=== PATIENT | female | born 1950 | race Caucasian/White ===

== ENCOUNTER 2020-04-30 09:04 | Outpatient (REF) | payer MEDICARE, SELFPAY ==
[2020-04-30 11:26] LABS: Hemoglobin 13.7 g/dl (12.0-16.0); Mean Corpuscular HGB Conc 32.6 g/dl (31.0-35.0); Mean Corpuscular Hemoglobin 27.9 pg (27.0-33.0); Mean Corpuscular Volume 85.5 fL (80-98); Mean Platelet Volume 10.7 fL (9.4-12.3); Platelet Count 165 X10*3/uL (160-400); Red Blood Count 4.91 X10*6/uL (4.20-5.50); Red Cell Distribution Width 14.6 % (11.0-16.0); White Blood Count 7.3 X10*3/uL (4.8-10.8)
[2020-04-30 11:59] LABS: Alanine Aminotransferase 21 U/L (0-31); Albumin Level 4.4 g/dL (3.5-5.0); Alkaline Phosphatase 67 U/L (39-117); Anion Gap 12 (12-20); Aspartate Amino Transferase 23 U/L (5-31); Bilirubin Total 0.8 mg/dL (0.0-1.0); Blood Urea Nitrogen 12 mg/dL (9-16); Calcium 9.2 mg/dL (8.4-10.2); Carbon Dioxide 28 mmol/L (22-29); Chloride 104 mmol/L (96-108); Cholesterol 123 mg/dL; Estimated Glomerular Filt Rate > 60; Glucose Fasting 113 mg/dL (60-99); HDL Cholesterol 40 mg/dL; LDL Cholesterol Calculated 62 mg/dl; Potassium 4.4 mmol/l (3.3-5.1); Sodium 140 mmol/L (135-145); Total Protein 7.1 g/dL (6.5-8.0); Triglycerides 106 mg/dL
[2020-04-30 12:07] LABS: Thyroid Stimulating Hormone 1.86 mIU/mL (0.32-4.0)
== END 2020-04-30 09:05 | disposition home or self-care (01) ==
LOC: HO.HMGCLDS 09:04
PROVIDERS: PCP Internal Medicine; Visit Provider Internal Medicine
DX: E78.5 Hyperlipidemia, unspecified (principal); E55.9 Vitamin D deficiency, unspecified; J44.9 Chronic obstructive pulmonary disease, unspecified; J98.8 Other specified respiratory disorders; K58.9 Irritable bowel syndrome, unspecified; R49.0 Dysphonia
CPT/HCPCS: 36415; 80053; 80061; 84443; 85027

== ENCOUNTER 2020-06-04 09:24 | Outpatient (REF) | payer MEDICARE, SELFPAY ==
--- NOTE | 2020-06-04 09:27 | CT_ITS ---
EXAMINATION: CT CHEST WITHOUT CONTRAST CLINICAL INFORMATION: COPD COMPARISON: None TECHNIQUE: Multidetector volumetric CT imaging of the chest was done. Axial MIP volume rendering provided. Sagittal and coronal reformatted images were obtained. This CT examination was performed using dose optimization techniques as appropriate, variously including the following: *Automated exposure control *Adjustment of mA and/or kV according to patient size (this includes techniques or standardized protocols for targeted exams where dose is matched to indication/reason for exam; i.e. 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 Band-like atelectasis visualized in the left lower lobe and lingula. There is focal consolidation, left lower lobe posterior basal segment, with large lobulated band-like linear density, left lower lobe extending to the major fissure. MEDIASTINUM: There is a large lobulated left hilar mass unable to distinguish from left pulmonary artery and pulmonary vein due to lack of IV contrast. There is abnormal infracarinal and anteromediastinal lymph nodes. The largest infracarinal lymph node measures 1.8. x 3.0 cm, axial image 25/3. The largest lymph node in the aortic window measures approximately 2.1 x 2.8 cm and is likely a direct extension of left hilar mass. Best visualized on axial image 19/3. PLEURA: Tiny left pleural effusion is noted posteriorly. No pleural thickening or calcification noted. AXILLA: No lymphadenopathy. UPPER ABDOMEN: Visualized liver, spleen, pancreas and bilateral adrenal glands are unremarkable. No radiopaque gallstones seen. OSSEOUS STRUCTURES: No lytic or sclerotic process. Small endplates Schmorl's node seen CT/CT chest wo con IMPRESSION: 1. Large left parahilar and suprahilar mass on noncontrast exam. There is associated abnormal mediastinal adenopathy. Differential diagnoses: enlarged left pulmonary artery branch secondary to AVM and/or varicosity. A CT chest contrast enhanced study would be helpful. 2. Interval small left pleural effusion.
== END 2020-06-04 09:25 | disposition home or self-care (01) ==
LOC: HO.CT 09:24
PROVIDERS: PCP Internal Medicine; Visit Provider Internal Medicine
DX: J44.9 Chronic obstructive pulmonary disease, unspecified (principal); F17.200 Nicotine dependence, unspecified, uncomplicated
CPT/HCPCS: 71250

== ENCOUNTER 2020-06-23 12:35 | Outpatient (REF) | payer MEDICARE, SELFPAY ==
[2020-06-23 15:19] LABS: Blood Urea Nitrogen 14 mg/dL (9-16); Estimated Glomerular Filt Rate > 60
== END 2020-06-23 12:36 | disposition home or self-care (01) ==
LOC: HO.HMGCLDS 12:35
PROVIDERS: PCP Internal Medicine; Visit Provider Internal Medicine
DX: R59.0 Localized enlarged lymph nodes (principal)
CPT/HCPCS: 82565; 84520

== ENCOUNTER 2020-06-24 09:40 | Outpatient (REF) | payer MEDICARE, SELFPAY ==
--- NOTE | 2020-06-24 09:43 | CT_ITS ---
EXAMINATION: CT CHEST WITH CONTRAST CLINICAL INFORMATION: Localized enlarged lymph nodes. COMPARISON: CT chest 06/04/2020 TECHNIQUE: Multidetector volumetric CT imaging of the chest was obtained after the administration of 50 mL of Omnipaque 350 intravenous contrast without immediate adverse reactions. Axial MIP volume rendering provided. Sagittal and coronal reformatted images were obtained. This CT examination was performed using dose optimization techniques as appropriate, variously including the following: *Automated exposure control *Adjustment of mA and/or kV according to patient size (this includes techniques or standardized protocols for targeted exams where dose is matched to indication/reason for exam; i.e. 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 LUNGS: The lungs are hyperinflated there is large nodular masses extending from the left hilum to the lower lobe likely resulting in bronchiolar obstruction and intrabronchiolar lesions. Moderate reticular interstitial nodular thickening in the left lower lobe posterior basal segment is suspected as well. There is a pleural-based 1.3 cm nodule left lower lobe image 48/5. This may represent a primary lung lesion. No additional nodules seen in the rest of the lung. MEDIASTINUM: There are large bulky lymphadenopathy seen in the subcarinal and left hilar region occluding the left mainstem bronchus and at the bifurcation into the bronchus intermedius and the lower lobe. Also visualized is abnormal lymph nodes extending in the aortic window, precarinal and pretracheal space. Central trachea is widely patent. The thyroid lobes are symmetrical. Heart size and great vessels are patent. There is mild narrowing of main left ovary artery and lower lobe pulmonary artery branch surrounded by pulmonary hilar lymph nodes. This finding is best visualized on the sagittal image 33/7. PLEURA: There is no pleural effusion. No pleural mass or thickening. AXILLA: No abnormal lymph nodes in the axilla. The chest wall and visualized breasts are symmetrical and normal. UPPER ABDOMEN: Visualized liver, spleen, pancreas and bilateral adrenal glands are unremarkable. OSSEOUS STRUCTURES: No lytic or sclerotic process seen. CT/CT chest w con IMPRESSION: Large bulky lymphadenopathy in the left subcarinal and left hilar and perihilar regions. Moderate size lymph nodes also visualized and aortic window precarinal and pretracheal space. Bulky lymphadenopathy surrounds the left bronchus mildly narrowing it. The bulky adenopathy also surrounding the left pulmonary artery and severely narrowing the left lower lobe pulmonary branch. There is a likely left lower lobe subpleural-based pulmonary nodule. Recommend referral to thoracic surgeon and oncologist. Recommend CT PET exam for further evaluation.
[2020-06-24] MEDS: iohexoL 350 MG/ML 100 ML INFUS..BTL 65 ML IV (10:37)
== END 2020-06-24 09:41 | disposition home or self-care (01) ==
LOC: HO.CT 09:40
PROVIDERS: PCP Internal Medicine; Visit Provider Internal Medicine
DX: R59.0 Localized enlarged lymph nodes (principal)
CPT/HCPCS: 71260; Q9967

== ENCOUNTER → 2020-06-27 09:11 | Outpatient (BNVA) | payer MEDICARE, SELFPAY | PROVIDERS: PCP Internal Medicine; Visit Provider Surgery | DX: R59.0 Localized enlarged lymph nodes (principal); R49.0 Dysphonia; R91.8 Other nonspecific abnormal finding of lung field | CPT/HCPCS: 99205 ==

== ENCOUNTER 2020-07-08 13:11 | Outpatient (REF) | payer MEDICARE, SELFPAY ==
--- NOTE | 2020-07-08 13:13 | MR_ITS ---
MR BRAIN WITHOUT AND WITH CONTRAST CLINICAL INFORMATION: Pulmonary nodule. Rule out brain metastases. COMPARISON: None TECHNIQUE: Multiplanar, multisequence MRI of the brain was obtained before and after the intravenous administration of 6 mL Gadavist. FINDINGS: There is no pathologic intracranial enhancement. There is mild chronic microangiopathy an there are chronic lacunar infarcts within the right deep puckett nuclei. There is no hydrocephalus, extra-axial surface collection, or herniation. The major flow voids at the skull base are preserved. There is a punctate acute lacunar infarct within the high left middle frontal gyrus on image 26 of series 4. There is no intracranial hemorrhage on the gradient recalled echo acquisition. The midline structures are normal. The cerebellar tonsils are normally positioned. The cerebellum and brainstem are normal. The craniocervical junction is normal. Osseous marrow signal intensity is homogenous. The visualized soft tissues are unremarkable. MR/MR head/brain wo/w con IMPRESSION: - There is a punctate acute lacunar infarct within the high left middle frontal gyrus on image 26 of series 4. - No enhancing lesions to suggest intracranial metastatic disease. - There is mild chronic microangiopathy an there are chronic lacunar infarcts within the right deep puckett nuclei.
== END 2020-07-08 13:12 | disposition home or self-care (01) ==
LOC: HO.MRI 13:11
PROVIDERS: Visit Provider Surgery
DX: R91.8 Other nonspecific abnormal finding of lung field (principal)
CPT/HCPCS: 70553; A9585

== ENCOUNTER 2020-07-15 08:59 | Outpatient (REF) | payer MEDICARE, SELFPAY ==
--- NOTE | 2020-07-15 09:03 | PE_ITS ---
EXAMINATION: Fluorine-18 FDG PET/CT Scan CLINICAL INDICATION: Initial treatment management. Pulmonary nodule. PROCEDURE: 68 minutes following the intravenous administration of 16.1 mCi of fluorine 18 FDG, images from the base of the skull to the mid thighs were obtained using a combined PET/CT scanner with CT scan based attenuation correction. No intravenous contrast was administered. No oral contrast was administered. Transverse, coronal, sagittal, and volume reconstruction projections were obtained. The patient's blood glucose as determined by a finger stick, was 67 mg/dl immediately prior to injection. Total CT exam dose-length product 321.84 mGy-cm * These CT images were obtained using dose optimization techniques as appropriate, variously including the following: Automated exposure control * Adjustment of mA and/or kV according to patient size (this includes techniques or standardized protocols for targeted exams where dose is matched to indication/reason for exam; i.e. extremities or head) * Use of iterative reconstruction technique COMPARISON: No previous PET/CT scan is available for comparison. CT scan of the chest dated 06/24/2020 is available for comparison. FINDINGS: (Slice numbers described in this report are numbered superiorly to inferiorly with slice #1 in the head) NECK AND VISUALIZED HEAD: No foci of abnormal FDG activity are noted. The distribution of FDG activity is physiological. There is no cervical lymphadenopathy. THORAX: There is intensely FDG avid confluent bulky lymphadenopathy that extends from superiorly in a right pretracheal focus at the level of the origin of the right subclavian artery to involve almost the entire right pretracheal region extending to the apoorva. Additional FDG avid precarinal lymph nodes are present and inferior to these extensive subcarinal, left hilar and left proximal peribronchial lymphadenopathy which is intensely FDG avid extends into the infrahilar region of the left lower lobe. Within this confluent mass the SUVmax is 15.3, slice 87/267, corresponding to a left lower lobe peribronchial focus. There is some posterolateral left lower lobe atelectasis, and within this is visualized the pleural-based 1.3 cm nodular opacity visualized on the 06/24/2020 CT scan. The latter is mildly FDG avid, SUVmax 2.6, slice 108/267. In the left upper lobe an FDG avid focus is present medially which abuts the posterior aspect of the left upper lobe bronchus, better delineated on the IV contrast enhanced 06/24/2020 CT scan and showing SUVmax 8.2, slice 75/267. No additional foci of abnormal FDG activity are present in the left upper lobe. No nodules or FDG avid foci are present in the right lung. There is no supraclavicular or axillary lymphadenopathy. There is no pleural or pericardial fluid, or pneumothorax. ABDOMEN AND PELVIS: No foci of abnormal FDG activity are present in the abdomen or pelvis. There is FDG activity of varying intensities in the gastrointestinal tract, most prominently in loops of small bowel in the right upper quadrant with no associated CT abnormalities. The liver, gallbladder, spleen comment kidneys, adrenal glands, and pancreas are unremarkable. There is no retroperitoneal, mesenteric, pelvic or inguinal lymphadenopathy. There is diverticulosis without evidence of diverticulitis. The hollow viscera are otherwise unremarkable. The pelvic organs are unremarkable. MUSCULOSKELETAL: No foci of abnormal FDG activity are present in the osseous structures. There is a mild thoracolumbar scoliosis with lumbar convexity to the left. There are degenerative changes in the spine most prominently at the L2-L3 level but there are no suspicious sclerotic or lytic lesions visualized. There is a dense 0.8 cm calcification in the posterior aspect of the left gluteus muscle posterior to the left ischium with no associated abnormal FDG activity. This may represent an injection granuloma. VASCULAR: Vascular calcifications including coronary are noted. PET/PET CT fusion skull to thigh IMPRESSION: 1. Intensely FDG avid bulky mediastinal, left hilar and left peribronchial lymphadenopathy is present as described above, most likely malignant in etiology. 2. A 1.3 nodular opacity abutting the posterolateral pleura of the left lower lobe is weakly FDG avid and is nonspecific. This may represent a small focus of rounded atelectasis, but the finding is nonspecific. 3. No additional abnormalities suspicious for other metastatic or malignant lesions are noted. 4. Vascular calcifications including coronary.
== END 2020-07-15 09:00 | disposition home or self-care (01) ==
LOC: HO.PET 08:59
PROVIDERS: Visit Provider Surgery
DX: Z13.89 Encounter for screening for other disorder (principal)

== ENCOUNTER → 2020-07-18 11:20 | Outpatient (BNVA) | payer MEDICARE, SELFPAY | PROVIDERS: PCP Internal Medicine; Visit Provider Surgery | DX: C34.82 Malignant neoplasm of overlapping sites of left bronchus and lung (principal); R59.0 Localized enlarged lymph nodes; F17.210 Nicotine dependence, cigarettes, uncomplicated | CPT/HCPCS: 99214 ==

== ENCOUNTER 2020-08-25 15:23 | Emergency (ER) | payer MEDICARE, SELFPAY ==
--- NOTE | ~2020-08-25 | CT_ITS ---
EXAMINATION: CT HEAD WITHOUT CONTRAST CLINICAL INFORMATION: Dizziness COMPARISON: Previous brain MRI June 2020 TECHNIQUE: Contiguous axial imaging was performed from the skull base to vertex without intravenous administration of contrast. This CT examination was performed using dose optimization techniques as appropriate, variously including the following: *Automated exposure control *Adjustment of mA and/or kV according to patient size (this includes techniques or standardized protocols for targeted exams where dose is matched to indication/reason for exam; i.e. extremities or head) *Use of iterative reconstruction technique DLP: 652 mGy-cm FINDINGS: There is no evidence of an extra-axial collection. There is no evidence of intra-axial or extra-axial hemorrhage. The ventricles and extra-axial CSF spaces are appropriate. Bishop white matter differentiation is normal. There may be an old small right basal ganglia lacunar infarct axial image 29 series 2. No mass, mass effect or acute infarct is seen. Review at bone windows is unremarkable. Visualized paranasal sinuses, mastoid air cells and middle ears are clear. CT/CT head/brain wo con IMPRESSION: No acute findings. Question old small right basal ganglia lacunar infarct.
[2020-08-25 15:34] VITALS: BP 135/77; BP 137/84; PULSE 86; RESP 16; TEMP 37.1; O2SAT 94; BMI 23.6
--- NOTE | 2020-08-25 15:44 | ECG_ITS ---
Test Reason : DIZZINESS Blood Pressure : / mmHG Vent. Rate : 094 BPM Atrial Rate : 094 BPM P-R Int : 120 ms QRS Dur : 078 ms QT Int : 350 ms P-R-T Axes : 015 006 044 degrees QTc Int : 437 ms Normal sinus rhythm Cannot rule out Inferior infarct , age undetermined Cannot rule out Anterior infarct , age undetermined Abnormal ECG No previous ECGs available Referred By: Lay Vivas Electronically Signed By:Francisco Villalobos
[2020-08-25 16:51] LABS: Basophils Absolute Auto 0.1 X10*3/uL (0.0-0.2); Basophils Percent Auto 0.8 % (0-2); Eosinophils Percent Auto 0.2 % (0-4); Hematocrit 32.9 % (37-47); Hemoglobin 11.3 g/dl (12.0-16.0); Imm Gran Abs Auto 0.11 X10*3/uL (0.00-0.03); Imm Gran Pct Auto 1.8 % (0.0-0.4); Lymphocytes Absolute Auto 0.4 X10*3/uL (1.2-4.9); Lymphocytes Percent Auto 5.8 % (20-40); MANUAL DIFF FLAG SCAN; Mean Corpuscular HGB Conc 34.3 g/dl (31.0-35.0); Mean Corpuscular Hemoglobin 27.8 pg (27.0-33.0); Mean Corpuscular Volume 80.8 fL (80-98); Mean Platelet Volume 8.9 fL (9.4-12.3); Monocytes Absolute Auto 0.1 X10*3/uL (0.1-1.2); Neutrophils Absolute Auto 5.7 X10*3/uL (2.0-8.3); Neutrophils Percent Auto 90.4 % (45-73); Platelet Count 216 X10*3/uL (160-400); Red Blood Count 4.07 X10*6/uL (4.20-5.50); Red Cell Distribution Width 15.4 % (11.0-16.0); SCAN SMEAR FLAG 1; White Blood Count 6.2 X10*3/uL (4.8-10.8)
--- NOTE | 2020-08-25 16:55 | ED_ITS ---
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 No nausea no vomiting no diarrhea no abdominal pain no focal deficit no fever no chills patient denies any chest pain no palpitation no shortness of breath no significant headache MD elicited complaint: dizziness and lightheadedness Pertinent past history: BPPV Onset (ago): hour(s) Timing: sudden onset Severity: mild Description: sense of movement Context: change in body position History of similar symptoms: Yes Exacerbating factors: movement/ambulation and change in body position Relieving factors: remaining still Associated symptoms: weakness Related Data Home Medications Medication Instructions Recorded Confirmed atorvastatin 80 mg tablet 80 mg PO DAILY 04/30/20 07/24/20 Previous Rx's Medication Instructions Recorded omeprazole 20 mg capsule,delayed 20 mg PO DAILY #90 cap 06/19/20 release lorazepam 1 mg tablet 1 mg PO BEDTIME PRN #30 tab 06/25/20 ergocalciferol (vitamin D2) 1,250 1,250 mcg PO QWEEK #12 cap 07/22/20 mcg (50,000 unit) capsule ondansetron HCl [Zofran] 8 mg PO Q8H PRN #50 tab 07/24/20 sertraline 100 mg tablet 100 mg PO DAILY #90 tab 08/19/20 Allergies Allergy/AdvReac Type Severity Reaction Status Date / Time codeine Allergy Unknown Itching Verified 07/24/20 09:08 erythromycin base Allergy Unknown Itching Verified 07/24/20 09:08 doxycycline Allergy Itching Verified 07/24/20 09:09 Review of Systems Review of Systems: Constitutional : No Weight loss, No Fever, No Chills ENT/Mouth : No sore throat, No Rhinorrhea Eyes: No Eye Pain, No Swelling Cardiovascular : No Chest Pain, no palpitations Respiratory : No Cough, No Sputum, no shortness of breath Gastrointestinal : no Nausea, No Vomiting, No Diarrhea, No abdominal Pain, no black stools Genitourinary : No Dysuria, No Urinary Frequency Musculoskeletal : No joint pain, No Myalgias, No Joint Swelling Skin : No Skin Lesions, No rash Neuro : No Weakness, No Numbness, ++ Dizziness, + Headache Psych : No Anxiety/Panic, No Depression Heme/Lymph: No Bruising, No Lymphadenopathy Endocrine : No Polyuria, No Polydipsia All other systems reviewed and are negative [facility] Past Medical History Medical History (Updated 08/25/20 @ 17:09 by Francis Peter MD) Congestion of upper respiratory tract COPD (chronic obstructive pulmonary disease) Dyspnea on exertion GERD (gastroesophageal reflux disease) Hiatal hernia Hilar adenopathy Hoarseness Hyperlipidemia IBS (irritable bowel syndrome) Mammogram declined Small cell lung cancer, overlapping sites of left lung Tobacco smoker, 1 pack of cigarettes or less per day Vitamin D deficiency Surgical History H/O colonoscopy History of dental surgery History of esophagogastroduodenoscopy (EGD) Hx of tonsillectomy No pertinent past surgical history Family History Family History Father Cancer of prostate Mother Alzheimer's disease DVT (deep venous thrombosis) Maternal Grandmother Diabetes mellitus Maternal Aunt Ovarian cancer Social History Social History Alcohol intake: former Smoking Status: Current every day smoker Tobacco Type: Cigarette Advance Directives: No Advance Directives Information Provided: Yes Physical Exam Vital Signs: Vital Signs: Last Vital Signs Temp 98.7 F 08/25/20 15:34 Pulse 86 08/25/20 15:34 Resp 16 08/25/20 15:34 BP 135/77 08/25/20 15:34 Pulse Ox 94 08/25/20 15:34 Body Mass Index 23.6 Appearance: Alert. Oriented X3. No acute distress. Eyes: Pupils equal, round and reactive to light. No nystagmus pallor+ ENT: Pharynx normal. Neck: Normal inspection. Neck supple. CVS: Normal heart rate and rhythm. Pulses normal. Respiratory: No respiratory distress. Breath sounds normal. Abdomen: Soft and nontender. Bowel sounds are present, no mass palpable, no CVA tenderness Skin: Skin warm and dry. Normal skin color. Normal skin turgor. Extremities: No lower extremity edema. Neuro: Oriented X 3. No motor deficit. No sensory deficit. No cerebellar signs no focal neurological deficit MDM - Dizziness Lab Data Attestation: I reviewed the patient's lab results. Result diagrams: 08/25/20 16:42 08/25/20 16:42 Labs: Lab Results 08/25/20 08/25/20 08/25/20 Range/Units 16:42 16:42 16:42 WBC 6.2 (4.8-10.8) X10*3/uL RBC 4.07 L (4.20-5.50) X10*6/uL Hgb 11.3 L (12.0-16.0) g/dl Hct 32.9 L (37-47) % MCV 80.8 (80-98) fL MCH 27.8 (27.0-33.0) pg MCHC 34.3 (31.0-35.0) g/dl RDW 15.4 (11.0-16.0) % Plt Count 216 D (160-400) X10*3/uL MPV 8.9 L (9.4-12.3) fL Immature Gran % (Auto) 1.8 H (0.0-0.4) % Neut % (Auto) 90.4 H (45-73) % Lymph % (Auto) 5.8 L (20-40) % [place] % (Auto) 1.0 L (2-11) % Eos % (Auto) 0.2 (0-4) % Baso % (Auto) 0.8 (0-2) % Lymph # (Auto) 0.4 L (1.2-4.9) X10*3/uL [place] # (Auto) 0.1 (0.1-1.2) X10*3/uL Eos # (Auto) 0.0 (0.0-0.4) X10*3/uL Baso # (Auto) 0.1 (0.0-0.2) X10*3/uL Abs Immat Gran (auto) 0.11 H (0.00-0.03) X10*3/uL Absolute Neuts (auto) 5.7 (2.0-8.3) X10*3/uL Absolute Nucleated RBC 0.000 (0.0-0.012) X10*3/uL Nucleated RBC % (auto) 0.0 (0.0-0.2) /100WBC PT 12.6 (10.8-13.0) SEC INR 1.1 (0.9-1.1) APTT 40.5 H (24.1-38.0) SEC Sodium 136 (135-145) mmol/L Potassium 4.1 (3.3-5.1) mmol/L Chloride 104 (96-108) mmol/L Carbon Dioxide 25 (22-29) mmol/L Anion Gap 11 L (12-20) BUN 16 D (9-16) mg/dL Creatinine 0.72 (0.5-1.4) mg/dL Estim Creat Clear Calc 60.9 Estimated GFR > 60 Random Glucose 123 H (60-115) mg/dL Calcium 8.4 (8.4-10.2) mg/dL Magnesium 1.9 (1.6-2.6) mg/dL Total Bilirubin 1.4 H (0.0-1.0) mg/dL Direct Bilirubin 0.5 (0.0-0.5) mg/dL AST 34 H (5-31) U/L ALT 52 H (0-31) U/L Alkaline Phosphatase 67 (39-117) U/L Troponin I High Sens (<3.5-17.0) ng/L Total Protein 6.7 (6.5-8.0) g/dL Albumin 4.0 (3.5-5.0) g/dL Urine Color Urine Appearance Urine pH (5.0-8.0) Ur Specific [place] (1.005-1.025) Urine Protein (NEG-TRACE) MG/DL Urine Glucose (UA) (NEG) MG/DL Urine Ketones (NEG) MG/DL Urine Blood (NEG) Urine Nitrite (NEG) Ur Leukocyte Esterase (NEG) COVID-19 (BRENDA) (Negative) COVID-19 Clin Com 08/25/20 08/25/20 08/25/20 Range/Units 16:42 16:42 16:55 WBC (4.8-10.8) X10*3/uL RBC (4.20-5.50) X10*6/uL Hgb (12.0-16.0) g/dl Hct (37-47) % MCV (80-98) fL MCH (27.0-33.0) pg MCHC (31.0-35.0) g/dl RDW (11.0-16.0) % Plt Count (160-400) X10*3/uL MPV (9.4-12.3) fL Immature Gran % (Auto) (0.0-0.4) % Neut % (Auto) (45-73) % Lymph % (Auto) (20-40) % [place] % (Auto) (2-11) % Eos % (Auto) (0-4) % Baso % (Auto) (0-2) % Lymph # (Auto) (1.2-4.9) X10*3/uL [place] # (Auto) (0.1-1.2) X10*3/uL Eos # (Auto) (0.0-0.4) X10*3/uL Baso # (Auto) (0.0-0.2) X10*3/uL Abs Immat Gran (auto) (0.00-0.03) X10*3/uL Absolute Neuts (auto) (2.0-8.3) X10*3/uL Absolute Nucleated RBC (0.0-0.012) X10*3/uL Nucleated RBC % (auto) (0.0-0.2) /100WBC PT (10.8-13.0) SEC INR (0.9-1.1) APTT (24.1-38.0) SEC Sodium (135-145) mmol/L Potassium (3.3-5.1) mmol/L Chloride (96-108) mmol/L Carbon Dioxide (22-29) mmol/L Anion Gap (12-20) BUN (9-16) mg/dL Creatinine (0.5-1.4) mg/dL Estim Creat Clear Calc Estimated GFR Random Glucose (60-115) mg/dL Calcium (8.4-10.2) mg/dL Magnesium (1.6-2.6) mg/dL Total Bilirubin (0.0-1.0) mg/dL Direct Bilirubin (0.0-0.5) mg/dL AST (5-31) U/L ALT (0-31) U/L Alkaline Phosphatase (39-117) U/L Troponin I High Sens 77.6 H (<3.5-17.0) ng/L Total Protein (6.5-8.0) g/dL Albumin (3.5-5.0) g/dL Urine Color YELLOW Urine Appearance HAZY Urine pH 6.0 (5.0-8.0) Ur Specific [place] 1.020 (1.005-1.025) Urine Protein NEG (NEG-TRACE) MG/DL Urine Glucose (UA) NEG (NEG) MG/DL Urine Ketones NEG (NEG) MG/DL Urine Blood NEG (NEG) Urine Nitrite NEG (NEG) Ur Leukocyte Esterase NEG (NEG) COVID-19 (BRENDA) Negative (Negative) COVID-19 Clin Com See Note ECG Data Attestation: I personally reviewed and interpreted this ECG as follows: Interpretation: Normal sinus rhythm heart rate 94 beats per minute Q-wave in inferior leads no acute ST wave changes normal axis normal intervals impression no acute ischemia Discharge Plan Discharge Prescriptions: No Action omeprazole 20 mg capsule,delayed release(DR/EC) 20 mg PO DAILY Qty: 90 RF: 3 ergocalciferol (vitamin D2) 1,250 mcg (50,000 unit) capsule 1,250 mcg PO QWEEK Qty: 12 RF: 3 sertraline 100 mg tablet 100 mg PO DAILY Qty: 90 RF: 3 ondansetron HCl [Zofran] 4 mg Tablet 8 mg PO Q8H PRN (Reason: Nausea And Vomiting) Qty: 50 RF: 4 atorvastatin 80 mg tablet 80 mg PO DAILY RF: 0 lorazepam 1 mg tablet 1 mg PO BEDTIME PRN (Reason: anxiety) Qty: 30 RF: 0
[2020-08-25 16:58] LABS: INTERNATIONAL NORM RATIO 1.1 (0.9-1.1); Prothrombin Time 12.6 SEC (10.8-13.0)
[2020-08-25 17:01] LABS: Partial Thromboplastin Time 40.5 SEC (24.1-38.0)
[2020-08-25 17:06] LABS: COVID-19 Test Negative (Negative)
[2020-08-25] MEDS: 0.9 % Sodium Chloride 1,000 ML 999 ML IVCONT (17:08)
[2020-08-25 17:11] LABS: Appearance Urine HAZY; Color Urine YELLOW; Glucose Urine UA NEG (NEG); Leukocyte Esterase Urine NEG (NEG); Nitrite Urine NEG (NEG); Urine Blood NEG (NEG); Urine Ketones NEG (NEG); Urine Protein NEG (NEG-TRACE)
[2020-08-25 17:16] LABS: Alanine Aminotransferase 52 U/L (0-31); Alkaline Phosphatase 67 U/L (39-117); Anion Gap 11 (12-20); Aspartate Amino Transferase 34 U/L (5-31); Bilirubin Direct 0.5 mg/dL (0.0-0.5); Bilirubin Total 1.4 mg/dL (0.0-1.0); Blood Urea Nitrogen 16 mg/dL (9-16); Calcium 8.4 mg/dL (8.4-10.2); Carbon Dioxide 25 mmol/L (22-29); Chloride 104 mmol/L (96-108); Creatinine Clr Calc Pharmacy 60.9; Estimated Glomerular Filt Rate > 60; Glucose Random 123 mg/dL (60-115); Magnesium 1.9 mg/dL (1.6-2.6); Potassium 4.1 mmol/L (3.3-5.1); Sodium 136 mmol/L (135-145); Total Protein 6.7 g/dL (6.5-8.0)
[2020-08-25 17:20] VITALS: BP 114/71; PULSE 82
[2020-08-25 17:22] VITALS: BP 119/76; PULSE 91
[2020-08-25 17:24] LABS: Troponin-I High Sensitivity 77.6 ng/L (<3.5-17.0)
[2020-08-25 17:26] LABS: SLIDE REVIEW VERIFIED
[2020-08-25 17:36] VITALS: BP 125/83; PULSE 120
[2020-08-25 19:33] VITALS: BP 122/72; PULSE 77; RESP 16
[2020-08-25 19:49] VITALS: O2SAT 100
== END 2020-08-25 20:22 | disposition home or self-care (01) ==
PROVIDERS: Emergency Medicine; Emergency Provider Internal Medicine
DX: R53.1 Weakness (principal); Z20.822 Contact with and (suspected) exposure to COVID-19; C34.92 Malignant neoplasm of unspecified part of left bronchus or lung; F17.210 Nicotine dependence, cigarettes, uncomplicated; Z92.21 Personal history of antineoplastic chemotherapy; Z79.899 Other long term (current) drug therapy
CPT/HCPCS: 36415; 70450; 80048; 80076; 81003; 83735; 84484; 85025; 85610; 85730; 87635; 93005; 96360; 99284

== ENCOUNTER → 2021-08-19 12:07 | Outpatient (BNVA) | payer MEDICARE, SELFPAY | PROVIDERS: PCP Internal Medicine; Referring Provider Internal Medicine; Visit Provider Physician Assistant | DX: K58.9 Irritable bowel syndrome, unspecified (principal) | CPT/HCPCS: 99202 ==

== ENCOUNTER → 2021-09-08 13:04 | Outpatient (BNVA) | payer MEDICARE, SELFPAY | PROVIDERS: PCP Internal Medicine; Referring Provider Internal Medicine; Visit Provider Physician Assistant | DX: Z13.89 Encounter for screening for other disorder (principal) | CPT/HCPCS: Q3014 ==

== ENCOUNTER 2021-09-17 09:27 | Outpatient (REF) | payer MEDICARE, SELFPAY ==
[2021-09-17 11:52] LABS: Appearance Urine CLEAR; Color Urine YELLOW; Glucose Urine UA NEG (NEG); Leukocyte Esterase Urine TRACE (NEG); Nitrite Urine NEG (NEG); UACC Culture Trigger YES; Urine Blood NEG (NEG); Urine Ketones NEG (NEG); Urine Protein NEG (NEG-TRACE)
[2021-09-17 12:18] LABS: Iron 72 mcg/dL (30-160); Percent Iron Saturation 23 % (15-50); Total Iron Binding Capacity 310 mcg/dL (228-428); Unsaturated Iron Binding 238 ug/dL
[2021-09-17 12:19] LABS: Bacteria Urine TRACE /LPF; RBC Urine 0 /HPF (0); Squamous Epithelial Cell Urine 1+ /LPF
[2021-09-17 12:36] LABS: Folate 4.2 ng/mL (> or = 4.0); Vitamin B12 416 pg/mL (200-900)
== END 2021-09-17 09:28 | disposition home or self-care (01) ==
LOC: HO.HMGCLDS 09:27
PROVIDERS: Physician Assistant; Visit Provider Internal Medicine
DX: D64.9 Anemia, unspecified (principal); R30.0 Dysuria; R19.7 Diarrhea, unspecified
CPT/HCPCS: 36415; 81001; 81003; 82607; 82746; 83540; 87086; 87088; 87186

== ENCOUNTER 2022-01-28 08:18 | Day surgery (SDC) | payer MEDICARE, SELFPAY ==
[2021-11-02 12:20] VITALS: BMI 23.3
--- NOTE | 2021-11-05 13:49 | P.CONAN_ITS ---
HPI - Anesthesia Eval Consult details Narrative: 71yo F for Upper Endoscopy and Colonoscopy Lung CA with chemo PMFSH Active Problems Active Problems: All Active Problems (Updated 11/02/21 @ 12:16 by Areli Tate, RN) Lung mass (Acute) Extensive stage primary small cell carcinoma of lung (Acute) Dysuria (Acute) Anemia (Acute) Cataract (Acute) Constipation (Acute) UTI (urinary tract infection) (Acute) Small cell lung cancer, overlapping sites of left lung (Acute) Hilar adenopathy (Acute) Dyspnea on exertion (Acute) Vitamin D deficiency (Acute) Mammogram declined (Acute) Tobacco smoker, 1 pack of cigarettes or less per day (Acute) IBS (irritable bowel syndrome) (Acute) COPD (chronic obstructive pulmonary disease) (Acute) Hyperlipidemia (Acute) Congestion of upper respiratory tract (Acute) Hoarseness (Acute) Past Medical History Medical History (Updated 11/02/21 @ 12:16 by Areli Tate RN) Anemia Cataract Congestion of upper respiratory tract Constipation COPD (chronic obstructive pulmonary disease) Dyspnea on exertion Dysuria GERD (gastroesophageal reflux disease) Hiatal hernia Hilar adenopathy Hoarseness Hx of cancer of lung Hyperlipidemia IBS (irritable bowel syndrome) Mammogram declined Small cell lung cancer, overlapping sites of left lung Tobacco smoker, 1 pack of cigarettes or less per day UTI (urinary tract infection) Vitamin D deficiency Family History Family History Father Cancer of prostate Mother Alzheimer's disease DVT (deep venous thrombosis) Maternal Grandmother Diabetes mellitus Maternal Aunt Ovarian cancer Surgical History Surgical History (Updated 11/04/21 @ 12:38 by Areli Tate RN) H/O colonoscopy History of dental surgery History of esophagogastroduodenoscopy (EGD) Hx of cataract surgery Hx of tonsillectomy Social History Social History Household Members: Spouse Housing: House Are you a primary menagerie caretaker to a significant other at home: Yes (father, also has second menagerie caretaker) Do you presently have visiting nurse or other home services: No Alcohol intake: former Patient Tobacco Use Status: Current someday Tobacco user Tobacco use type: Cigarette Cigarettes Per Day: 0.5 Years Smoked: 50+ Smoked in Last 30 Days: Yes Use of substances other than those prescribed or required for medical reasons: No Have you been hit, kicked, punched, or otherwise hurt by someone within the past year? If so, by whom?: No Are you DNR?: No Advance Directives: No (will bring copy dos) Advance Directives Information Provided: No Advance Directives on File: No Recently lost weight without trying: No Eating poorly because of decreased appetite: No Nutrition Risks: Dental problems and Difficulty chewing Current occupational status: retired Meds Allergies Allergy/AdvReac Type Severity Reaction Status Date / Time codeine Allergy Severe Itching, Verified 11/02/21 12:19 GI upset doxycycline Allergy Severe Itching, Verified 11/02/21 12:19 GI upset erythromycin base Allergy Severe Itching, Verified 11/02/21 12:19 GI upset Home Medications Medication Instructions Recorded Confirmed Last Taken Type atorvastatin 80 mg tablet 80 mg PO BEDTIME 11/02/21 11/02/21 Unknown History dorzolamide 2 % eye drops 1 drp OPHTHALMIC (EYE) BID 11/02/21 11/02/21 Unknown History latanoprost 0.005 % eye drops 1 drp OPHTHALMIC (EYE) DAILY 11/02/21 11/02/21 Unknown History Exam Exam Date and Time: November 05, 2021 1349 Height,Weight and Vital Signs: Height 5 ft 4 in Weight 61.689 kg Pertinent Lab Results Pertinent Lab Results: 10/02/21 Labs from outside facility CBC WNL except Plts 126 (L) BMP WNL Narrative Narrative: EKG 06/2020 NSR @ 87 Assessment and Plan Assessment Anesthesia Assessment: Chart Reviewed
--- NOTE | 2022-01-27 08:56 | P.CONAN_ITS ---
Documented by User: Dasha Green NP 01/27/22 08:58 HPI - Anesthesia Eval Consult details Narrative: 71yo F for Upper Endoscopy and Colonoscopy Lung CA ~ 2020 with chemo, rad, immunotherapy PMFSH Active Problems Active Problems: All Active Problems (Updated 11/02/21 @ 12:16 by Areli Tate, ENRIQUETA) Lung mass (Acute) Extensive stage primary small cell carcinoma of lung (Acute) Dysuria (Acute) Anemia (Acute) Cataract (Acute) Constipation (Acute) UTI (urinary tract infection) (Acute) Small cell lung cancer, overlapping sites of left lung (Acute) Hilar adenopathy (Acute) Dyspnea on exertion (Acute) Vitamin D deficiency (Acute) Mammogram declined (Acute) Tobacco smoker, 1 pack of cigarettes or less per day (Acute) IBS (irritable bowel syndrome) (Acute) COPD (chronic obstructive pulmonary disease) (Acute) Hyperlipidemia (Acute) Congestion of upper respiratory tract (Acute) Hoarseness (Acute) Past Medical History Medical History Anemia Cataract Congestion of upper respiratory tract Constipation COPD (chronic obstructive pulmonary disease) Dyspnea on exertion Dysuria GERD (gastroesophageal reflux disease) Hiatal hernia Hilar adenopathy Hoarseness Hx of cancer of lung Hyperlipidemia IBS (irritable bowel syndrome) Mammogram declined Small cell lung cancer, overlapping sites of left lung Tobacco smoker, 1 pack of cigarettes or less per day UTI (urinary tract infection) Vitamin D deficiency Family History Family History Father Cancer of prostate Mother Alzheimer's disease DVT (deep venous thrombosis) Maternal Grandmother Diabetes mellitus Maternal Aunt Ovarian cancer Surgical History Surgical History H/O colonoscopy History of dental surgery History of esophagogastroduodenoscopy (EGD) Hx of cataract surgery Hx of tonsillectomy Social History Social History Household Members: Spouse Housing: House Are you a primary medicare coordinator to a significant other at home: Yes (father, also has second medicare coordinator) Do you presently have visiting nurse or other home services: No Alcohol intake: former Patient Tobacco Use Status: Current someday Tobacco user Tobacco use type: Cigarette Cigarettes Per Day: 0.5 Years Smoked: 50+ Smoked in Last 30 Days: Yes Use of substances other than those prescribed or required for medical reasons: No Have you been hit, kicked, punched, or otherwise hurt by someone within the past year? If so, by whom?: No Are you DNR?: No Advance Directives: No (will bring copy dos) Advance Directives Information Provided: Yes Advance Directives on File: No Recently lost weight without trying: No Eating poorly because of decreased appetite: No Nutrition Risks: Dental problems and Difficulty chewing Current occupational status: retired Meds Allergies Allergy/AdvReac Type Severity Reaction Status Date / Time codeine Allergy Severe Itching, Verified 11/02/21 12:19 GI upset doxycycline Allergy Severe Itching, Verified 11/02/21 12:19 GI upset erythromycin base Allergy Severe Itching, Verified 11/02/21 12:19 GI upset Home Medications Medication Instructions Recorded Confirmed Last Taken Type atorvastatin 80 mg tablet 80 mg PO BEDTIME 11/02/21 11/02/21 Unknown History dorzolamide 2 % eye drops 1 drp ophthalmic (eye) BID 11/02/21 11/02/21 Unknown History latanoprost 0.005 % eye drops 1 drp ophthalmic (eye) DAILY 11/02/21 11/02/21 Unknown History Exam Exam Date and Time: January 27, 2022 0856 Height,Weight and Vital Signs: Height 5 ft 4 in Weight 61.689 kg Assessment and Plan Assessment Anesthesia Assessment: Chart Reviewed Documented by User: Abena Pittman MD 01/28/22 10:54 PMFSH Active Problems Active Problems: All Active Problems (Updated 11/02/21 @ 12:16 by Areli Tate RN) Lung mass (Acute) Extensive stage primary small cell carcinoma of lung (Acute) Dysuria (Acute) Anemia (Acute) Cataract (Acute) Constipation (Acute) UTI (urinary tract infection) (Acute) Small cell lung cancer, overlapping sites of left lung (Acute) Hilar adenopathy (Acute) Dyspnea on exertion (Acute) Vitamin D deficiency (Acute) Mammogram declined (Acute) Tobacco smoker, 1 pack of cigarettes or less per day (Acute) IBS (irritable bowel syndrome) (Acute) COPD (chronic obstructive pulmonary disease) (Acute)- not using inhaler Hyperlipidemia (Acute) Congestion of upper respiratory tract (Acute) Hoarseness (Acute) Past Medical History Medical History Anemia Cataract Congestion of upper respiratory tract Constipation COPD (chronic obstructive pulmonary disease) Dyspnea on exertion Dysuria GERD (gastroesophageal reflux disease) Hiatal hernia Hilar adenopathy Hoarseness Hx of cancer of lung Hyperlipidemia IBS (irritable bowel syndrome) Mammogram declined Small cell lung cancer, overlapping sites of left lung Tobacco smoker, 1 pack of cigarettes or less per day UTI (urinary tract infection) Vitamin D deficiency Family History Family History Father Cancer of prostate Mother Alzheimer's disease DVT (deep venous thrombosis) Maternal Grandmother Diabetes mellitus Maternal Aunt Ovarian cancer Family history of problems with anesthesia: No Surgical History Surgical History H/O colonoscopy History of dental surgery History of esophagogastroduodenoscopy (EGD) Hx of cataract surgery Hx of tonsillectomy History of Problems with Anesthesia: No Social History Social History Household Members: Spouse Housing: House Are you a primary medicare coordinator to a significant other at home: Yes (father, also has second medicare coordinator) Do you presently have visiting nurse or other home services: No Alcohol intake: former Patient Tobacco Use Status: Current someday Tobacco user Tobacco use type: Cigarette Cigarettes Per Day: 0.5 Years Smoked: 50+ Smoked in Last 30 Days: Yes Use of substances other than those prescribed or required for medical reasons: No Have you been hit, kicked, punched, or otherwise hurt by someone within the past year? If so, by whom?: No Are you DNR?: No Advance Directives: No (will bring copy dos) Advance Directives Information Provided: Yes Advance Directives on File: No Recently lost weight without trying: No Eating poorly because of decreased appetite: No Nutrition Risks: Dental problems and Difficulty chewing Current occupational status: retired Meds Allergies Allergy/AdvReac Type Severity Reaction Status Date / Time codeine Allergy Severe Itching, Verified 11/02/21 12:19 GI upset doxycycline Allergy Severe Itching, Verified 11/02/21 12:19 GI upset erythromycin base Allergy Severe Itching, Verified 11/02/21 12:19 GI upset Home Medications Medication Instructions Recorded Confirmed Last Taken Type atorvastatin 80 mg tablet 80 mg PO BEDTIME 11/02/21 11/02/21 Unknown History dorzolamide 2 % eye drops 1 drp ophthalmic (eye) BID 11/02/21 11/02/21 Unknown History latanoprost 0.005 % eye drops 1 drp ophthalmic (eye) DAILY 11/02/21 11/02/21 Unknown History Exam Height,Weight and Vital Signs: Height 5 ft 4 in Weight 61.689 kg Vital Signs Temp Pulse Resp BP Pulse Ox O2 Del Method 01/28/22 08:57 97.1 F 94 18 116/71 97 Room Air Airway Mallampati Class: I TM Dist: >3cm Neck ROM: Full Loose/Missing/Broken Teeth: Yes (Has dental implants -2 have fallen out at the back. Others intact) Heart: RRR Lungs: Bilateral wheezing Assessment and Plan Assessment Anesthesia Assessment: Anesthesia Plan Discussed Final Anesthetic Review Family History of Problems with Anesthesia: No History of Problems with Anesthesia: No NPO: Yes ASA Class: III Final Preanesthetic Review: No Changes in Pt Med Stat, Meds/Allgs Chart Reviewed, Consent Obtained/Reviewed and Anes Risks/Benef Reviewed Patient Risk: Intermediate Procedure Risk: Low Assessment/Block/Sedation in SS: Assess/Block/Sedation-SS Anesthetic Plan Anesthetic Plan: MAC: and Other (Albuterol treatment ordered) Disposition: Standard PACU
[2022-01-28 08:57] VITALS: BP 116/71; PULSE 94; RESP 18; TEMP 36.2; O2SAT 97
[2022-01-28] MEDS: Lactated Ringers 1,000 ML 100 ML IVCONT (08:59)
[2022-01-28] MEDS: Albuterol Sulfate (0.083%) 2.5 MG/3 ML VIAL.NEB INHALE (10:05)
[2022-01-28 10:06] VITALS: PULSE 84; RESP 18; O2SAT 96
--- NOTE | 2022-01-28 10:10 | MHC.SHP ---
Pre-Procedural Eval Section A Date of Service: 01/28/22 Section B Chief Complaint: anemia, abnormal bowle habits Relevant Family History (Specify if Yes): No Relevant Social History: Tobacco Use Present Medications: see Short Stay Collaborative assessment Medical History: Significant History (Anemia Cataract Congestion of upper respiratory tract Constipation COPD (chronic obstructive pulmonary disease) Dyspnea on exertion Dysuria GERD (gastroesophageal reflux disease) Hiatal hernia Hilar adenopathy Hoarseness Hx of cancer of lung Hyperlipidemia IBS (irritable bowel syndrome) Mammogram de) History of Previous Operations: Relevant previous surgery/procedure and date(s) (H/O colonoscopy History of dental surgery History of esophagogastroduodenoscopy (EGD) Hx of cataract surgery Hx of tonsillectomy) Allergies: Allergies Allergy/AdvReac Type Severity Reaction Status Date / Time codeine Allergy Severe Itching, Verified 11/02/21 12:19 GI upset doxycycline Allergy Severe Itching, Verified 11/02/21 12:19 GI upset erythromycin base Allergy Severe Itching, Verified 11/02/21 12:19 GI upset Review of Systems Sugical H&P ROS: Negative: Constitution, Cardiovascular, Respiratory, Neurological, Psychiatric, Hem-Onc, Allergic/Immunologic, Gastrointestinal, Genitourinary, Musculoskeletal, Integumentary, Endocrine and Eyes/Ears/Nose/Throat Exam Surgical H&P Exam: Normal: HEENT, Normal: Heart, Normal: Lungs, Normal: Extremities, Normal: Abdomen, Normal: Skin and Normal: Neurological Plan Diagnosis/Plan: Unchanged I have reviewed the history and physical and performed a pertinent physical examination on my patient. No changes have occurred unless specified.
--- NOTE | 2022-01-28 10:59 | W.PM.OPN ---
Operative Note Operative Note Date of Service: 01/28/22 Narrative: Operative Information Procedure Description: EGD, Colonoscopy Indication: abn bowel habits, anemia Anesthesia: MAC FLEXIBLE TRANSORAL UPPER GASTROINTESTINAL ENDOSCOPY AND COLONOSCOPY PROCEDURE NOTE UPPER ENDOSCOPY Consent: Indications for the procedure and potential complications of bleeding, perforation, reaction to medications and missed diagnosis were discussed with the patient and informed consent was obtained. Instrument: Olympus GIF H 190 J mid size upper endoscope Monitoring: Vital signs and clinical assessment, continuous EKG monitoring, Pulse oximetry, Carbon Dioxide monitoring and blood pressure monitoring were done throughout the procedure. Procedure: The patient was placed in the left lateral decubitis position and pre-procedure medications were administered and a bite block was placed. The endoscope was inserted into the mouth and advanced under direct vision to the third part of duodenum. A careful inspection was made as the upper endoscope was withdrawn including a retroflexed examination of the proximal stomach; Findings and interventions are described below. Findings: Larynx:normal Esophagus: GE junction at 34 cm, diaphragm hiatus at 36 cm, consistent with 2 cm sliding hiatal hernia, mild esophagitis and irregular Z line, bx taken, small esophageal inlet patch. Stomach: Mild gastritis. Biopsies were obtained. Grade 2 flap valve on retroflexed examination of the cardia. Duodenum: Normal bulb and descending duodenum, bx taken Intervention: Biopsies as noted above COLONOSCOPY Instrument: Olympus variable stiffness pediatric scope 190L Colonoscopy Monitoring: Vital signs and clinical assessment, continuous EKG monitoring, Pulse oximetry, Carbon Dioxide monitoring and blood pressure monitoring were done throughout the procedure. Colon withdrawal time was 10 minutes. Procedure: The patient was placed in the left lateral decubitis position and pre-procedure medications were administered. After a digital rectal examination of the ano-rectum, the video colonoscope was inserted into the rectum and advanced through the colon to the cecum/TI. The colonoscope was slowly withdrawn in a retrograde panoramic fashion and the colon mucosa was carefully examined including a retroflexed view of the rectum. Findings and interventions are described below. Procedure Difficulty: easy Findings: Terminal Ileum-normal, bx taken random colon bx taken Cecum:normal Ascending Colon: normal Transverse Colon -normal Descending Colon:normal Sigmoid Colon:moderate diverticulosis Rectum: Retroflexion with small internal hemorrhoids, grade I, 8 mm sessile polyp removed with cold snare Anorectum - normal Colon preparation: Burchard Bowel Preparation Scale Right colon; 2 Transverse colon: 2 Left colon; 2 (0 = Unprepared colon segment with mucosa not seen due to solid stool that cannot be cleared. 1 = Portion of mucosa of the colon segment seen, but other areas of the colon segment not well seen due to staining, residual stool and/or opaque liquid. 2 = Minor amount of residual staining, small fragments of stool and/or opaque liquid, but mucosa of colon segment seen well. 3 = Entire mucosa of colon segment seen well with no residual staining, small fragments of stool or opaque liquid) Impression and Post Procedure Diagnosis: Endoscopy Findings: hiatal hernia mild gastritis Colonoscopy Findings: polyp internal hemorrhoids diverticular disease Plan: Await Pathology results Repeat Colonoscopy in 5 years if adenomatous polyp, 10 years if hyperplastic or earlier if clinically indicated High fiber diet leaflet avoid straining at stool, epsom salts and sitz bath, anusol supps or cream reflux precautions Above findings were reviewed with the patient and relevant handouts were provided if indicated.
[2022-01-28 11:15] VITALS: BP 92/57; PULSE 93; RESP 13; TEMP 36.3; O2SAT 96
[2022-01-28 11:30] VITALS: BP 106/72; PULSE 84; RESP 16; O2SAT 95
[2022-01-28 11:45] VITALS: BP 106/62; PULSE 86; RESP 16; TEMP 36.4; O2SAT 95
== END 2022-01-28 12:54 | disposition home or self-care (01) ==
PROVIDERS: PCP Internal Medicine; Visit Provider Internal Medicine Gastroenterology
PROC: (CPT 45385; principal; 2022-01-28 10:20)
DX: D64.9 Anemia, unspecified (principal); R19.4 Change in bowel habit; K62.1 Rectal polyp; K57.30 Diverticulosis of large intestine without perforation or abscess without bleeding; K64.0 First degree hemorrhoids; K29.50 Unspecified chronic gastritis without bleeding; K29.80 Duodenitis without bleeding; K21.9 Gastro-esophageal reflux disease without esophagitis; K44.9 Diaphragmatic hernia without obstruction or gangrene; Q39.8 Other congenital malformations of esophagus; K58.9 Irritable bowel syndrome, unspecified; J44.9 Chronic obstructive pulmonary disease, unspecified; C34.82 Malignant neoplasm of overlapping sites of left bronchus and lung; E78.5 Hyperlipidemia, unspecified; E55.9 Vitamin D deficiency, unspecified; F17.210 Nicotine dependence, cigarettes, uncomplicated; Z92.21 Personal history of antineoplastic chemotherapy; Z79.899 Other long term (current) drug therapy; Z88.1 Allergy status to other antibiotic agents; Z88.8 Allergy status to other drugs, medicaments and biological substances
CPT/HCPCS: 45385; 45380; 43239; 88305; 88342; 94640; J2250

== ENCOUNTER → 2022-02-15 12:30 | Outpatient (BNVA) | payer MEDICARE, SELFPAY | PROVIDERS: PCP Internal Medicine; Visit Provider Physician Assistant | DX: K58.9 Irritable bowel syndrome, unspecified (principal); K21.9 Gastro-esophageal reflux disease without esophagitis; K57.30 Diverticulosis of large intestine without perforation or abscess without bleeding | CPT/HCPCS: 99212 ==

== ENCOUNTER 2022-04-29 09:18 | Outpatient (REF) | payer MEDICARE, SELFPAY ==
[2022-04-29 11:33] LABS: MANUAL DIFF FLAG NO
[2022-04-29 11:45] LABS: Basophils Percent Auto 0.4 % (0-2); Eosinophils Absolute Auto 0.2 X10*3/uL (0.0-0.4); Eosinophils Percent Auto 2.5 % (0-4); Hematocrit 40.2 % (37.0-47.0); Hemoglobin 12.9 g/dl (12.0-16.0); Imm Gran Abs Auto 0.02 X10*3/uL (0.00-0.03); Imm Gran Pct Auto 0.3 % (0.0-0.4); Lymphocytes Absolute Auto 0.6 X10*3/uL (1.2-4.9); Lymphocytes Percent Auto 8.8 % (20-40); Mean Corpuscular HGB Conc 32.1 g/dl (31.0-35.0); Mean Corpuscular Hemoglobin 27.4 pg (27.0-33.0); Mean Corpuscular Volume 85.4 fL (80.0-98.0); Mean Platelet Volume 11.2 fL (9.4-12.3); Monocytes Absolute Auto 0.5 X10*3/uL (0.1-1.2); Monocytes Percent Auto 7.8 % (2-11); Neutrophils Absolute Auto 5.5 x10*3/uL (2.0-8.3); Neutrophils Percent Auto 80.2 % (45-73); Platelet Count 144 X10*3/uL (160-400); Red Blood Count 4.71 X10*6/uL (4.20-5.50); Red Cell Distribution Width 17.2 % (11.0-16.0); White Blood Count 6.8 X10*3/uL (4.8-10.8)
[2022-04-29 11:54] LABS: Estimated Average Glucose 91 mg/dL; Hemoglobin A1c % 4.8 %
[2022-04-29 12:13] LABS: Alanine Aminotransferase 14 U/L (0-31); Albumin Level 4.3 g/dL (3.5-5.0); Alkaline Phosphatase 71 U/L (39-117); Anion Gap 15 (12-20); Aspartate Amino Transferase 20 U/L (5-31); Bilirubin Total 0.3 mg/dL (0.0-1.0); Blood Urea Nitrogen 20 mg/dL (9-16); Calcium 9.1 mg/dL (8.4-10.2); Carbon Dioxide 26 mmol/L (22-29); Chloride 107 mmol/L (96-108); Cholesterol 131 mg/dL; Estimated Glomerular Filt Rate > 60; Glucose Fasting 109 mg/dL (60-99); HDL Cholesterol 40 mg/dL; LDL Cholesterol Calculated 68 mg/dl; Potassium 4.6 mmol/L (3.3-5.1); Sodium 143 mmol/L (135-145); Total Protein 6.7 g/dL (6.5-8.0); Triglycerides 119 mg/dL
[2022-04-29 12:19] LABS: TSH reflex Free T4 2.17 uIU/mL (0.32-4.0)
== END 2022-04-29 09:19 | disposition home or self-care (01) ==
LOC: HO.HMGCLDS 09:18
PROVIDERS: PCP Internal Medicine; Visit Provider Internal Medicine
DX: Z00.00 Encounter for general adult medical examination without abnormal findings (principal); R73.9 Hyperglycemia, unspecified; R91.8 Other nonspecific abnormal finding of lung field; C34.82 Malignant neoplasm of overlapping sites of left bronchus and lung; E78.5 Hyperlipidemia, unspecified
CPT/HCPCS: 36415; 80053; 80061; 83036; 84443; 85025

== ENCOUNTER 2023-02-28 08:55 | Outpatient (AMB) | payer MEDICARE, SELFPAY ==
[2023-02-28 08:58] VITALS: BP 110/74; PULSE 109; O2SAT 98; BMI 24.4
--- NOTE | 2023-02-28 08:58 | A.OFFPC_ITS ---
Vital Signs 02/28/23 08:58 Height 5 ft 4 in Weight 142 lb BMI 24.4 BP 110/74 Blood Pressure Location Lt brachial Position Sitting Pulse 109 H Pulse Source Pulse Oximeter Pulse Oximetry (%) 98 Oxygen Delivery Method Room Air Intake Visit Reasons: Annual PE Intake Note: Pt is here today for PE. Allergies codeine Allergy (Severe, Verified 02/28/23 09:02) Itching, GI upset doxycycline Allergy (Severe, Verified 02/28/23 09:02) Itching, GI upset erythromycin base Allergy (Severe, Verified 02/28/23 09:02) Itching, GI upset Tobacco use date assessed: 02/28/23 Fall risk assessment: No Falls in past year Last assessed Fall Risk: 02/28/23 Dental Screening Dental Screen Date: 02/28/23 Did you have a dental visit in the last 12 months?: Yes Did you have a dental problem in the last 6 months where you did not have access to dental care?: No Was dental information given to patient?: Patient has dentist HPI Annual PE HPI Details Pt presents for PE. She is getting immunotherapy for recurrent SCLCA. patient complains of feeling generally tired but has good appetite and has been physically active. She has not been using inhalers for COPD because they were not helpful [facility] Medical History (Updated 02/28/23 @ 10:04 by Radha Chung MD) Anemia Cataract Congestion of upper respiratory tract Constipation COPD (chronic obstructive pulmonary disease) Dyspnea on exertion Dysuria GERD (gastroesophageal reflux disease) Hiatal hernia Hilar adenopathy Hoarseness Hx of cancer of lung Hyperlipidemia IBS (irritable bowel syndrome) Mammogram declined Small cell lung cancer, overlapping sites of left lung Tobacco smoker, 1 pack of cigarettes or less per day UTI (urinary tract infection) Vitamin D deficiency Surgical History H/O colonoscopy History of dental surgery History of esophagogastroduodenoscopy (EGD) Hx of cataract surgery Hx of tonsillectomy Family History Father Cancer of prostate Mother Alzheimer's disease DVT (deep venous thrombosis) Maternal Grandmother Diabetes mellitus Maternal Aunt Ovarian cancer Social History Household Members: Spouse Housing: House Are you a primary career guidance technician to a significant other at home: Yes (father, also has second career guidance technician) Do you presently have visiting nurse or other home services: No Alcohol intake: former Patient Tobacco Use Status: Current everyday Tobacco user Tobacco use type: Cigarette Cigarettes Per Day: 8 Years Smoked: 50+ e-Cigarette/Vaping Use: Never Used Current occupational status: retired Cognitive needs: No Hearing needs: No Vision needs: No Questionnaire PHQ-9 Over the last 2 weeks, how often have you been bothered by any of the following problems? 1. Little interest or pleasure in doing things: nearly every day 2. Feeling down, depressed, or hopeless: not at all 3. Trouble falling or staying asleep, or sleeping too much: nearly every day (cancer related-no depression ) 4. Feeling tired or having little energy: several days (cancer related-no depression ) 5. Poor appetite or overeating: several days (cancer related-no depression ) 6. Feeling bad about yourself - or that you are a failure or have let yourself or your family down: not at all 7. Trouble concentrating on things, such as reading the newspaper or watching television: nearly every day 8. Moving or speaking so slowly that other people could have noticed. Or the opposite - being so fidgety or restless that you have been moving around a lot more than usual: nearly every day 9. Thoughts that you would be better off or of hurting yourself in some way: not at all Total score: 14 Depression Screening Interpretation: Negative Source: Developed by Drs. Jermaine Rivera, Kaye Bob, Celio Malcolm and colleagues, with an educational sharon from [employer]. Thrive Questionnaire Date Thrive assessed: 02/28/23 I am a: Patient What is your living situation today?: I have a steady place to live Within the past 12 months, did the food you bought not last and you didn't have the money to get more?: Never true Within the past 12 months, did you worry whether your food would run out before you got money to buy more?: Never true Do you have trouble paying for medicines?: No Do you have trouble getting transportation to medical appointments?: No Do you have trouble paying your heating and electricity bill?: No Do you have trouble taking care of your child, family member or friend?: No Do you have trouble with day-to-day activities such as bathing, preparing meals, shopping, managing finances, etc.?: No Are you currently unemployed and looking for a job?: No Are you interested in more education?: No Please select the resources that you would like help with: None Currently or been in a relationship where the following occur: no concerns reported AUDIT C Alcohol Use Questionnaire (AUDIT-C) 1. How often do you have a drink containing alcohol?: Never 3. How often do you have six or more drinks on one occasion?: Never Total Score: 0 RICCO-7 AMB Questionnaire RICCO-7 Date RICCO - 7 assessed: 02/28/23 Source: Developed by Drs. Jermaine Rivera, Kaye Bob, Celio Malcolm and colleagues, with an educational sharon from [employer]. RICCO-7 Assessment Billing RICCO-7 Assessment Tool: pt declined-do not bill Review of Systems Const All systems reviewed & are unremarkable except as noted in HPI and below Reports no additional complaints Eyes Reports no additional complaints ENT Reports no additional complaints Card Reports no additional complaints Resp Reports no additional complaints GI Reports no additional complaints Reports no additional complaints Physical exam (Primary Care) Vital Signs: Last Vital Signs Pulse 109 H 02/28/23 08:58 BP 110/74 02/28/23 08:58 Pulse Ox 98 02/28/23 08:58 Oxygen Delivery Method Room Air 02/28/23 08:58 BMI result Body Mass Index 24.4 Tobacco/Smoking Status: Tobacco use Status Tobacco use date assessed 02/28/23 02/28/23 09:06 Patient Tobacco Use Status Current everyday Tobacco 02/28/23 09:06 Tobacco use type Cigarette 02/28/23 08:58 e-Cigarette/Vaping Use Never Used 02/28/23 09:06 PHQ-9: PHQ-9 Score PHQ-9: Total score 14 02/28/23 09:10 Depression Screening Interpretation: Negative Thrive Assessment: Date of Thrive Assessment Date Thrive assessed 02/28/23 02/28/23 09:10 Currently or been in a relationship where the following occur: no concerns reported Const General: no acute distress HENMT Head: Yes normal to inspection Ears: hearing grossly normal bilaterally General nose exam: Normal external nose present Face and sinus: Yes normal facial exam Mouth: Normal oral and palatal mucosa present Teeth and gingiva: dentition normal Throat: Yes posterior oropharynx normal Eyes General: appearance normal, both eyes and all related structures Neck Neck: Yes no lymphadenopathy and Yes supple Resp Effort & Inspection: normal respiratory effort Auscultation: diminished lung sounds (left more than right) Cardio Rhythm: regular rhythm Heart sounds: S1 normal heart sound present and S2 normal heart sound present GI Inspection: Yes normal to inspection Palpation (GI): Soft to palpation Percussion: Yes normal to percussion Auscultation: normal bowel sounds Assessment and Plan Assessment & Plan (1) Annual physical exam: Code(s): Z00.00 - Encounter for general adult medical examination without abnormal findings Plan: Well-balanced diet and regular physical activity discussed with the patient. (2) Small cell lung cancer, overlapping sites of left lung: Comment: [facility]iko- immunotherapy Dyspnea Code(s): C34.82 - Malignant neoplasm of overlapping sites of left bronchus and lung Plan: Follow-up with oncology (3) GERD (gastroesophageal reflux disease): Comment: Smoker, fairly well controlled with PPI Code(s): K21.9 - Gastro-esophageal reflux disease without esophagitis Plan: Continue PPI (4) Anxiety and depression: Code(s): F41.9 - Anxiety disorder, unspecified; F32.A - Depression, unspecified Plan: Continue Zoloft and follow-up with psychotherapy Coding Level of Care Code Est Pt Prev Care >65y(71293) Diagnoses Annual physical exam Z00.00 Small cell lung cancer, overlapping sites of left lung C34.82 GERD (gastroesophageal reflux disease) K21.9 Anxiety and depression F41.9; F32.A
== END 2023-02-28 10:04 | disposition home or self-care (01) ==
PROVIDERS: PCP Internal Medicine; Visit Provider Internal Medicine
DX: Z00.00 Encounter for general adult medical examination without abnormal findings (principal); C34.82 Malignant neoplasm of overlapping sites of left bronchus and lung; K21.9 Gastro-esophageal reflux disease without esophagitis; F41.9 Anxiety disorder, unspecified; F32.A Depression, unspecified
CPT/HCPCS: 99397

== ENCOUNTER → 2024-03-07 14:47 | Outpatient (RCR) | payer MEDICARE, OTHER, SELFPAY ==
[2020-07-24 08:58] VITALS: BP 115/65; PULSE 95; RESP 12; TEMP 36.7; O2SAT 95; BMI 24.0
--- NOTE | 2020-07-24 09:24 | P.CNHO_ITS ---
Subjective - Subjective Chief complaint: Consult for small cell carcinoma of the lung. Patient: new to practice Consult date: 07/24/20 Requesting Physician: Natasha. Primary Care Provider: Radha Chung MD Medical Summary: DIAGNOSIS: SMALL CELL LUNG CANCER. HPI - Consult Narrative Reason for consult: SMALL CELL LUNG CANCER. Narrative: Nicole Ivy is a pleasant 70 year old lady, long-time smoker, she tells me that a few months ago she noted that her acid reflux was acting up. She also noted her voice to be changing in became more hoarse. She then developed a sore throat. She had progressively increasing shortness of breath. She had to sit down after she mowed the lawn if she walked from car to the office she would get short of breath. Her chest was feeling heavy. She saw her primary who gave her nebulizer and other meds. When they did not work she had a chest x-ray did taken. This was followed by a CT scan of the chest which was done on June 24 and revealed: Large bulky lymphadenopathy in the left subcarinal and left hilar and perihilar regions. Moderate size lymph nodes also visualized and aortic window precarinal and pretracheal space. Bulky lymphadenopathy surrounds the left bronchus mildly narrowing it. The bulky adenopathy also surrounding the left pulmonary artery and severely narrowing the left lower lobe pulmonary branch. There is a likely left lower lobe subpleural-based pulmonary nodule. Recommend referral to thoracic surgeon and oncologist. Recommend CT PET exam for further evaluation. A left perihilar lung mass as well as significant mediastinal lymphadenopathy suspicious for at least a stage III lung cancer. We also discussed in detail the diagnosis, staging, and treatment of lung cancer which she seemed understand. A PET scan, from , revealed: 1. Intensely FDG avid bulky mediastinal, left hilar and left peribronchial lymphadenopathy is present as described above, most likely malignant in etiology. 2. A 1.3 nodular opacity abutting the posterolateral pleura of the left lower lobe is weakly FDG avid and is nonspecific. This may represent a small focus of rounded atelectasis, but the finding is nonspecific. 3. No additional abnormalities suspicious for other metastatic or malignant lesions are noted. 4. Vascular calcifications including coronary. She then underwent a brain MRI, to rule out metastatic disease. This showed no evidence of metastatic disease to the brain. She had a bronchoscopy and endobronchial ultrasound for diagnostic and staging purposes. . On bronchoscopy: There was a near totally obstructing lesion in the left mainstem bronchus right at the secondary apoorva. This was biopsied and small cell lung cancer. Endobronchial ultrasound done showed extensive mediastinal lymphadenopathy and stations L4, R4, and level 7 were all biopsied and positive for small cell carcinoma. She tolerated the procedure well and has been doing well since. She tells me that lately she has felt more tired than usual. Denies any fever nor chills. Her appetite has declined. She has lost about 8 lb over the past 6 months. She does feel dizzy at times She has midsternal chest pressure. She has shortness of breath on exertion. She does have a dry cough. Denies hemoptysis. She has had symptoms of reflux. She has been burping a lot. Bowels are mainly regular however she does get episodes of diarrhea off and on. She does get joint pains related to arthritis. SOCIAL HISTORY: She has a , that she lives with. She has no children. She has been smoking a pack a day since the age of 16. She is now trying to quit. She is down to 3 or less cigarettes a day. She drinks socially. Review of Systems - Constitutional Reports system reviewed and no additional complaints, except as documented - Eyes Reports system reviewed and no additional complaints, except as documented - ENT Reports system reviewed and no additional complaints, except as documented - Cardiovascular Reports system reviewed and no additional complaints, except as documented, Reports chest pain at rest, Reports shortness of breath - Respiratory Reports no additional respiratory complaints, Reports cough, Reports dyspnea on exertion - Gastrointestinal Reports system reviewed and no additional complaints, except as documented, Reports belching, Reports bloating, Reports diarrhea, Reports nausea - Genitourinary Reports no additional female genitourinary complaints - Musculoskeletal Reports system reviewed and no additional complaints, except as documented, Reports joint pain - Integumentary/Breasts Skin/Breast: Reports no additional skin complaints - Neurologic Reports system reviewed and no additional complaints, except as documented - Psychiatric Reports system reviewed and no additional complaints, except as documented - Endocrine Reports no additional endocrine complaints - Hematologic/Lymphatic Reports system reviewed and no additional complaints, except as documented - Allergic/Immunologic Reports system reviewed and no additional complaints, except as documented [facility] Medical History: Medical History (Last Reviewed 07/18/20 @ 14:33 by Jae Kaur MD) Congestion of upper respiratory tract COPD (chronic obstructive pulmonary disease) Dyspnea on exertion GERD (gastroesophageal reflux disease) Hiatal hernia Hilar adenopathy Hoarseness Hyperlipidemia IBS (irritable bowel syndrome) Mammogram declined Tobacco smoker, 1 pack of cigarettes or less per day Vitamin D deficiency Functional capacity: independent ambulation Patient : No Family History: Family History (Last Updated 07/24/20 @ 09:06 by Shasta Khan) Father Cancer of prostate Mother Alzheimer's disease DVT (deep venous thrombosis) Maternal Grandmother Diabetes mellitus Maternal Aunt Ovarian cancer Surgical History: Surgical History (Last Updated 07/24/20 @ 09:04 by Shasta Khan) H/O colonoscopy History of dental surgery History of esophagogastroduodenoscopy (EGD) Hx of tonsillectomy No pertinent past surgical history Smoking status: Current every day smoker Home Medications and Allergies Home Medications Medication Instructions Recorded Confirmed Type atorvastatin 80 mg tablet 80 mg PO DAILY 04/30/20 07/24/20 History sertraline 100 mg tablet 100 mg PO DAILY 04/30/20 07/24/20 History Allergies Allergy/AdvReac Type Severity Reaction Status Date / Time codeine Allergy Unknown Itching Verified 07/24/20 09:08 erythromycin base Allergy Unknown Itching Verified 07/24/20 09:08 doxycycline Allergy Itching Verified 07/24/20 09:09 Physical Exam Vital signs: Vital Signs Temp 98.1 F 07/24/20 08:58 Pulse 95 07/24/20 08:58 Resp 12 07/24/20 08:58 BP 115/65 07/24/20 08:58 Pulse Ox 95 07/24/20 08:58 Intake & Output 07/23/20 07/24/20 07/24/20 18:59 06:59 18:59 Other: Weight 64.4 kg Weight 64.4 kg - Constitutional Present: moderate distress - Routine Neck Exam Present: supple - Routine Respiratory Exam Present: CTAB - Routine Cardiovascular Exam Cardiovascular: Present: RRR, S1, S2 - Routine Abdominal Exam Present: soft, nontender - Routine Rectal Exam Patient deferred: digital exam - Routine Skin Exam Present: intact - Routine Neurological Exam Present: alert, oriented X3 - Detailed Neurological Exam: Coma Scale Eye Opening: Spontaneous (4) Verbal Response: Oriented (5) Motor Response: Obeys commands (6) Edon Coma Scale Total: 15 - Routine Psychiatric Exam Present: depressed, normal affect. Absent: agitated Hem/Onc Consult Result - Labs CBC & Chem 7: 07/29/20 15:59 07/29/20 15:59 Assessment and Plan (1) Extensive stage primary small cell carcinoma of lung Status: Acute This is a pleasant 70-year-old lady with history of smoking and COPD. She presented with progressive cough, chest pressure, hoarseness and shortness of breath over the past 6 months. She has been diagnosed with extensive stage small cell carcinoma of the lung. CT scan of the chest which was done on June 24 and revealed: Large bulky lymphadenopathy in the left subcarinal and left hilar and perihilar regions. Moderate size lymph nodes also visualized and aortic window precarinal and pretracheal space. Bulky lymphadenopathy surrounds the left bronchus mildly narrowing it. The bulky adenopathy also surrounding the left pulmonary artery and severely narrowing the left lower lobe pulmonary branch. There is a likely left lower lobe subpleural-based pulmonary nodule. Recommend referral to thoracic surgeon and oncologist. Recommend CT PET exam for further evaluation. A PET scan, from , revealed: 1. Intensely FDG avid bulky mediastinal, left hilar and left peribronchial lymphadenopathy is present as described above, most likely malignant in etiology. 2. A 1.3 nodular opacity abutting the posterolateral pleura of the left lower lobe is weakly FDG avid and is nonspecific. This may represent a small focus of rounded atelectasis, but the finding is nonspecific. 3. No additional abnormalities suspicious for other metastatic or malignant lesions are noted. 4. Vascular calcifications including coronary. MRI of the brain: showed no evidence of metastatic disease to the brain. She appears to have significant bronchial obstruction. I went over the course and prognosis of small-cell carcinoma with her and her significant other. Mentioned that without treatment, her median survival would be 8 weeks. With treatment it could be 18-24 months, depending upon her response and tolerability. I have recommended combined modality therapy with radiation along with systemic chemotherapy with carbo etoposide and Atezolizumab. She had a tele visit with Dr. Carter, from [facility], yesterday. Details of the regimen including potential side effects of nausea vomiting diarrhea, renal toxicity, pancytopenia, need for antibiotic blood transfusions as well as growth factors was all addressed with her. She understands and is willing to proceed. PLAN: I will start her on systemic chemotherapy next week. Will give her 1 cycle and hopefully she can start radiation with her 2nd. She will return on Tuesday for chemo teaching and get started on TuesdayJuly 30. All her and her partner's questions were answered to their satisfaction. Thanks, CC: Dr. Chung.
--- NOTE | 2020-07-24 09:42 | MHC.HEMONCMA ---
Patient came in today for a consult on a lung cancer diagnosis, states she is doing well, she only has sob when she is moving/walking. She had a consult with [facility], the will call her next week for her start there. She will be treated with chemo, her chemo teach will be Tuesday and her regiment is going to be tue, and tuesday's. She is ok with the plan.
[2020-07-24 10:06] LABS: MANUAL DIFF FLAG NO
[2020-07-24 10:14] LABS: Basophils Percent Auto 0.4 % (0-2); Eosinophils Absolute Auto 0.1 X10*3/uL (0.0-0.4); Eosinophils Percent Auto 1.5 % (0-4); Hemoglobin 13.1 g/dl (12.0-16.0); Imm Gran Abs Auto 0.02 X10*3/uL (0.00-0.03); Imm Gran Pct Auto 0.3 % (0.0-0.4); Lymphocytes Absolute Auto 0.9 X10*3/uL (1.2-4.9); Lymphocytes Percent Auto 13.8 % (20-40); Mean Corpuscular HGB Conc 32.8 g/dl (31.0-35.0); Mean Corpuscular Hemoglobin 27.2 pg (27.0-33.0); Mean Platelet Volume 9.9 fL (9.4-12.3); Monocytes Absolute Auto 0.6 X10*3/uL (0.1-1.2); Monocytes Percent Auto 8.1 % (2-11); Neutrophils Absolute Auto 5.1 X10*3/uL (2.0-8.3); Neutrophils Percent Auto 75.9 % (45-73); Platelet Count 182 X10*3/uL (160-400); Red Blood Count 4.82 X10*6/uL (4.20-5.50); Red Cell Distribution Width 14.5 % (11.0-16.0); White Blood Count 6.8 X10*3/uL (4.8-10.8)
[2020-07-24 10:37] LABS: Alanine Aminotransferase 25 U/L (0-31); Albumin Level 4.1 g/dL (3.5-5.0); Alkaline Phosphatase 72 U/L (39-117); Anion Gap 12 (12-20); Aspartate Amino Transferase 24 U/L (5-31); Bilirubin Total 0.8 mg/dL (0.0-1.0); Blood Urea Nitrogen 16 mg/dL (9-16); Calcium 8.8 mg/dL (8.4-10.2); Carbon Dioxide 26 mmol/L (22-29); Chloride 105 mmol/L (96-108); Creatinine Clr Calc Pharmacy 55.5; Estimated Glomerular Filt Rate > 60; Glucose Random 109 mg/dL (60-115); Lactate Dehydrogenase 255 U/L (122-220); Potassium 4.3 mmol/l (3.3-5.1); Sodium 139 mmol/L (135-145); Total Protein 6.8 g/dL (6.5-8.0)
--- NOTE | 2020-07-24 16:33 | MHC.HEMONC ---
Onc consult today with Dr. Owen. Plan to start Atezolizumab/Carboplatin/Etoposide. Chemotherapy teaching scheduled for 07/29/20 with plan to start chemotherapy on 07/30/20. [place] to obtain prior authorization. No need for port placement at this time per Dr. Owen. Pharmacy notified.
--- NOTE | 2020-07-28 15:16 | MHC.HEMONC ---
NO PA REQUIRED FOR CARBOPLATIN(REF#: [id number]) & ETOPOSIDE( REF#-[id number]) - [facility] -
--- NOTE | 2020-07-28 15:22 | MHC.HEMONC ---
ATEZOLIZUMAB (TECENTRIQ) PA REQUESTED. WAITING ON RESPONSE
--- NOTE | 2020-07-29 09:18 | MHC.HEMONC ---
SIM FOR ATEZOLIZUMAB ([facility]) APPROVED REFERENCE# [id number]
[2020-07-29 14:19] VITALS: BP 135/79; PULSE 92; RESP 18; TEMP 36.7; O2SAT 95; BMI 24.0
[2020-07-29 16:13] LABS: MANUAL DIFF FLAG NO
[2020-07-29 16:20] LABS: Basophils Percent Auto 0.4 % (0-2); Eosinophils Absolute Auto 0.1 X10*3/uL (0.0-0.4); Eosinophils Percent Auto 1.7 % (0-4); Hematocrit 42.1 % (37-47); Imm Gran Abs Auto 0.02 X10*3/uL (0.00-0.03); Imm Gran Pct Auto 0.2 % (0.0-0.4); Lymphocytes Absolute Auto 1.2 X10*3/uL (1.2-4.9); Lymphocytes Percent Auto 14.6 % (20-40); Mean Corpuscular HGB Conc 33.3 g/dl (31.0-35.0); Mean Corpuscular Hemoglobin 27.3 pg (27.0-33.0); Mean Corpuscular Volume 82.1 fL (80-98); Monocytes Absolute Auto 0.7 X10*3/uL (0.1-1.2); Monocytes Percent Auto 8.4 % (2-11); Neutrophils Absolute Auto 6.3 X10*3/uL (2.0-8.3); Neutrophils Percent Auto 74.7 % (45-73); Platelet Count 197 X10*3/uL (160-400); Red Blood Count 5.13 X10*6/uL (4.20-5.50); Red Cell Distribution Width 14.6 % (11.0-16.0); White Blood Count 8.4 X10*3/uL (4.8-10.8)
[2020-07-29 16:51] LABS: Alanine Aminotransferase 32 U/L (0-31); Albumin Level 4.4 g/dL (3.5-5.0); Alkaline Phosphatase 77 U/L (39-117); Anion Gap 14 (12-20); Aspartate Amino Transferase 30 U/L (5-31); Blood Urea Nitrogen 10 mg/dL (9-16); Calcium 9.3 mg/dL (8.4-10.2); Carbon Dioxide 26 mmol/L (22-29); Chloride 102 mmol/L (96-108); Creatinine Clr Calc Pharmacy 53.4; Estimated Glomerular Filt Rate > 60; Glucose Random 89 mg/dL (60-115); Potassium 4.4 mmol/l (3.3-5.1); Sodium 138 mmol/L (135-145); Total Protein 7.5 g/dL (6.5-8.0)
--- NOTE | 2020-07-29 17:13 | MHC.HEMONC ---
Chemo teach done with pt and her spouse. Consent signed. Labs done and WNL. Will start c1d1 chemo tomorrow.
[2020-07-30 08:53] VITALS: BP 128/72; PULSE 102; RESP 18; TEMP 36.9; O2SAT 94; BMI 25.1
[2020-07-30] MEDS: ondansetron HCL/NS 16 MG/50 ML PIGGYBACK 200 MG IV (09:37)
[2020-07-30] MEDS: dexAMETHasone sod phosphate/NS 12 MG/50 ML PIGGYBACK 200 MG IV (10:05)
[2020-07-30] MEDS: Atezolizumab 1,200 MG in 0.9 % Sodium Chloride 250 ML 270 MG IV (10:42)
[2020-07-30 14:00] VITALS: BP 100/61; PULSE 92; RESP 18; O2SAT 94
--- NOTE | 2020-07-30 16:00 | MHC.HEMONC ---
Pt here for c1d1 Atezolizumab/Carboplatin and Etoposide. Labs from yesterday reviewed and WNL. She is a little nervous but otherwise feeling OK. She tolerated diet today x 2 and all of chemo meds via PIV. She will leave access in for tomorrow. VSS prior to leaving. She has Zofran at home if needed for nausea. EMEND not needed per Dr Owen. I called [facility] to let them know date for c#2 so they can set pt up for RT. They will be calling her.
[2020-07-31 12:33] VITALS: BP 121/58; PULSE 91; RESP 18; TEMP 36.6; O2SAT 94; BMI 25.2
[2020-07-31] MEDS: ondansetron HCL/NS 16 MG/50 ML PIGGYBACK 200 MG IV (13:01)
--- NOTE | 2020-07-31 15:24 | MHC.HEMONC ---
Pt here for day#2 Etoposide. She did well after day#1 chemo yesterday. IV intact and flushed with positive blood return. Tomorrow will be day#3.
--- NOTE | 2020-07-31 15:43 | MHC.HEMONCSW ---
PATIENT IS A 70 YEAR OLD FEMALE, INDEPENDENT AND ABLE TO MAKE HER NEEDS KNOWN. DIAGNOSIS IS LUNG CANCER. TODAY SHE ARRIVED ALONE BUT HER CAME TO INITIAL CONSULT. IS HER HEALTH CARE PROXY, AWARE WE NEED A COPY. DENIES PAST/PRESENT MENTAL ILLNESS AND SUBSTANCE ABUSE. TREATMENTS INCLUDE CHEMOTHERAPY AND RADIATION TREATMENTS. PATIENT CHOSE NOT TO DISCUSS THE IMPACT OF CANCER ON HER AND AT THIS TIME. [facility] EDUCATION, REASSURANCE, GUIDANCE AND SUPPORT PROVIDED. DOES NOT WANT COUNSELING OR SUPPORT GROUP REFERRALS. SHE IS AWARE OF MY AVAILABILITY. WILL FOLLOW FOR CONTINUITY OF CARE.
[2020-08-01 12:52] VITALS: BP 101/64; PULSE 77; RESP 16; TEMP 36.6; O2SAT 97; BMI 25.7
[2020-08-01] MEDS: ondansetron HCL/NS 16 MG/50 ML PIGGYBACK 200 MG IV (13:01)
--- NOTE | 2020-08-01 13:43 | MHC.HEMONC ---
Pt reports sleeplessness. She has normal tumor pain in chest but no worse. She does not want pain rx. Appetite is fair. Denies n/v. VSS. Tolerating chemo. F/U for labs next week.
--- NOTE | 2020-08-01 16:12 | MHC.HEMONCSW ---
MET WITH PATIENT AND HER . PATIENT REPORTS COPING WELL, KEEPS BUSY AT HOME. DENIES STRESS OR COMPLAINTS AT THIS TIME. PATIENT IS AWARE OF MY AVAILABILITY. WILL FOLLOW FOR CONTINUITY OF CARE.
[2020-08-06 09:54] LABS: MANUAL DIFF FLAG NO
[2020-08-06 10:02] LABS: Basophils Absolute Auto 0.1 X10*3/uL (0.0-0.2); Eosinophils Absolute Auto 0.1 X10*3/uL (0.0-0.4); Eosinophils Percent Auto 1.1 % (0-4); Hematocrit 37.3 % (37-47); Hemoglobin 12.6 g/dl (12.0-16.0); Imm Gran Abs Auto 0.13 X10*3/uL (0.00-0.03); Imm Gran Pct Auto 2.5 % (0.0-0.4); Lymphocytes Absolute Auto 0.7 X10*3/uL (1.2-4.9); Lymphocytes Percent Auto 13.5 % (20-40); Mean Corpuscular HGB Conc 33.8 g/dl (31.0-35.0); Mean Corpuscular Hemoglobin 27.5 pg (27.0-33.0); Mean Corpuscular Volume 81.3 fL (80-98); Mean Platelet Volume 10.1 fL (9.4-12.3); Monocytes Absolute Auto 0.1 X10*3/uL (0.1-1.2); Monocytes Percent Auto 1.1 % (2-11); Neutrophils Absolute Auto 4.2 X10*3/uL (2.0-8.3); Neutrophils Percent Auto 80.8 % (45-73); Platelet Count 135 X10*3/uL (160-400); Red Blood Count 4.59 X10*6/uL (4.20-5.50); Red Cell Distribution Width 13.6 % (11.0-16.0); White Blood Count 5.3 X10*3/uL (4.8-10.8)
[2020-08-06 10:30] LABS: Alanine Aminotransferase 32 U/L (0-31); Albumin Level 4.3 g/dL (3.5-5.0); Alkaline Phosphatase 67 U/L (39-117); Anion Gap 13 (12-20); Aspartate Amino Transferase 30 U/L (5-31); Bilirubin Total 1.3 mg/dL (0.0-1.0); Blood Urea Nitrogen 16 mg/dL (9-16); Calcium 9.1 mg/dL (8.4-10.2); Carbon Dioxide 26 mmol/L (22-29); Chloride 102 mmol/L (96-108); Creatinine Clr Calc Pharmacy 60.2; Estimated Glomerular Filt Rate > 60; Glucose Random 103 mg/dL (60-115); Sodium 137 mmol/L (135-145); Total Protein 7.1 g/dL (6.5-8.0)
--- NOTE | 2020-08-06 11:47 | MHC.HEMONC ---
Here for labs following chemo last week. Will call with results which were WNL.
--- NOTE | 2020-08-06 15:38 | MHC.HEMONC ---
MEDICAL RECORDS FAXED TO MARTIN AT [facility] RADI[facility]
[2020-08-13 12:43] LABS: Eosinophils Percent Auto 2.1 % (0-4); Hematocrit 31.1 % (37-47); Hemoglobin 10.5 g/dl (12.0-16.0); Lymphocytes Absolute Auto 0.7 X10*3/uL (1.2-4.9); Lymphocytes Percent Auto 50.4 % (20-40); MANUAL DIFF FLAG SCAN; Mean Corpuscular HGB Conc 33.8 g/dl (31.0-35.0); Mean Corpuscular Hemoglobin 27.2 pg (27.0-33.0); Mean Corpuscular Volume 80.6 fL (80-98); Mean Platelet Volume 9.8 fL (9.4-12.3); Monocytes Absolute Auto 0.3 X10*3/uL (0.1-1.2); Monocytes Percent Auto 19.1 % (2-11); Neutrophils Absolute Auto 0.4 X10*3/uL (2.0-8.3); Neutrophils Percent Auto 28.4 % (45-73); Red Blood Count 3.86 X10*6/uL (4.20-5.50); SCAN SMEAR FLAG 1
[2020-08-13 12:45] LABS: Platelet Count 70 X10*3/uL (160-400); White Blood Count 1.4 X10*3/uL (4.8-10.8)
[2020-08-13 13:37] LABS: Alanine Aminotransferase 20 U/L (0-31); Alkaline Phosphatase 60 U/L (39-117); Anion Gap 10 (12-20); Aspartate Amino Transferase 22 U/L (5-31); Bilirubin Total 1.3 mg/dL (0.0-1.0); Blood Urea Nitrogen 13 mg/dL (9-16); Calcium 8.7 mg/dL (8.4-10.2); Carbon Dioxide 28 mmol/L (22-29); Chloride 105 mmol/L (96-108); Creatinine Clr Calc Pharmacy 61.8; Estimated Glomerular Filt Rate > 60; Glucose Random 90 mg/dL (60-115); Potassium 3.6 mmol/L (3.3-5.1); Sodium 139 mmol/L (135-145); Total Protein 6.7 g/dL (6.5-8.0)
[2020-08-13 13:56] LABS: SLIDE REVIEW VERIFIED
--- NOTE | 2020-08-13 14:22 | MHC.HEMONC ---
Pt was here for labs. She is due to start chemo next week (c#2) with RT this time. WBC 1.4 and anc 400. PLT 70. Pt has had some small amt blood in sputum. I called her with report and reviewed neutropenic precautions and when to call us. I also told her to call with any persistent bleeding. She did understand. Labs left for Dr Owen to review upon return tomorrow.
--- NOTE | 2020-08-14 09:40 | MHC.HEMONCSW ---
SHELDON MONTEMAYOR REQUEST WENT TO [facility] CLINICAL REVIEW. PENDING AUTH [id number] WAIT DECISION.
--- NOTE | 2020-08-14 12:18 | MHC.HEMONC ---
Labs reviewed by Dr. Owen, patient to return Friday 08/18 to reassess labs and possible Neupogen. Bre patel, working on PA. Patient notified.
--- NOTE | 2020-08-18 11:23 | MHC.HEMONCSW ---
SHELDON DENIED ON TUESDAY PER GELA AT [facility] NOT BEING A COVERED BENEFIT. THIS MESSAGE WAS LEFT ON ANSWERING MACHINE. I'VE TRIED SEVERAL TIMES TO REACH GELA, LEAVING URGENT MESSAGES. PHONED, SPOKE, EXPLAINED TO PATIENT.
[2020-08-18 16:23] VITALS: BMI 25.7
[2020-08-19 11:31] LABS: Basophils Percent Auto 0.3 % (0-2); Eosinophils Percent Auto 0.9 % (0-4); Hematocrit 34.4 % (37-47); Hemoglobin 11.4 g/dl (12.0-16.0); Imm Gran Abs Auto 0.05 X10*3/uL (0.00-0.03); Imm Gran Pct Auto 1.4 % (0.0-0.4); Lymphocytes Absolute Auto 0.7 X10*3/uL (1.2-4.9); Lymphocytes Percent Auto 19.3 % (20-40); MANUAL DIFF FLAG SCAN; Mean Corpuscular HGB Conc 33.1 g/dl (31.0-35.0); Mean Corpuscular Hemoglobin 27.8 pg (27.0-33.0); Mean Corpuscular Volume 83.9 fL (80-98); Mean Platelet Volume 10.2 fL (9.4-12.3); Monocytes Absolute Auto 0.7 X10*3/uL (0.1-1.2); Monocytes Percent Auto 18.7 % (2-11); Neutrophils Absolute Auto 2.1 X10*3/uL (2.0-8.3); Neutrophils Percent Auto 59.4 % (45-73); Platelet Count 142 X10*3/uL (160-400); Red Cell Distribution Width 16.3 % (11.0-16.0); SCAN SMEAR FLAG 1; White Blood Count 3.5 X10*3/uL (4.8-10.8)
[2020-08-19 11:52] LABS: Alanine Aminotransferase 49 U/L (0-31); Albumin Level 4.2 g/dL (3.5-5.0); Alkaline Phosphatase 78 U/L (39-117); Anion Gap 10 (12-20); Aspartate Amino Transferase 46 U/L (5-31); Bilirubin Total 0.7 mg/dL (0.0-1.0); Blood Urea Nitrogen 9 mg/dL (9-16); Calcium 8.6 mg/dL (8.4-10.2); Carbon Dioxide 29 mmol/L (22-29); Chloride 105 mmol/L (96-108); Creatinine Clr Calc Pharmacy 57.2; Estimated Glomerular Filt Rate > 60; Glucose Random 92 mg/dL (60-115); Lactate Dehydrogenase 232 U/L (122-220); Potassium 4.2 mmol/L (3.3-5.1); Sodium 140 mmol/L (135-145)
[2020-08-19 12:03] LABS: SLIDE REVIEW VERIFIED
--- NOTE | 2020-08-19 13:55 | MHC.HEMONC ---
Lab draw done. Pt scheduled to return in AM for chemo treatment.
[2020-08-20 10:20] VITALS: BP 146/86; PULSE 94; RESP 18; TEMP 36.5; O2SAT 99; BMI 25.0
[2020-08-20] MEDS: ondansetron HCL/NS 16 MG/50 ML PIGGYBACK 200 MG IV (10:44)
[2020-08-20] MEDS: dexAMETHasone sod phosphate/NS 12 MG/50 ML PIGGYBACK 200 MG IV (11:06)
[2020-08-20] MEDS: Atezolizumab 1,200 MG in 0.9 % Sodium Chloride 250 ML 540 MG IV (11:30)
--- NOTE | 2020-08-20 14:46 | MHC.HEMONC ---
Pt here for c2d1 chemo. She started RT today at [facility]. Her labs wer done yesterday and WNL. She did well with c#1. She does have fatigue and picky appetite. No n/v. She received treatment today uneventfully. PIV left in for day#2 tomorrow.
--- NOTE | 2020-08-20 16:30 | MHC.HEMONCSW ---
PATIENT TO START RADIATION TREATMENT TODAY, THIS IS HER 2ND DAY OF CHEMO. REPORTS FEELING WELL. DENIES ANY STRESS OR COMPLAINTS AT THIS TIME. PATIENT IS AWARE OF MY AVAILABILITY.
[2020-08-21 13:08] VITALS: BP 117/55; PULSE 76; RESP 18; TEMP 37.2; O2SAT 96; BMI 25.5
[2020-08-21] MEDS: ondansetron HCL/NS 16 MG/50 ML PIGGYBACK 200 MG IV (13:18)
--- NOTE | 2020-08-21 14:37 | P.PNHO_ITS ---
Medical Summary - Medical Summary Date of Service: 08/21/20 Medical Summary: DIAGNOSIS: SMALL CELL LUNG CANCER. CURRENT THERAPY: On carboplatin/etoposide/Atizolizumab here for cycle 2. Started radiation this week. Interval History Interval history: Nicole Ivy is a pleasant 70 year old lady, here for a follow-up visit. She is here for day 2 of her 2nd cycle of chemotherapy. So far she has been tolerating it. She is actually feeling a whole lot better. She tells me after the 1st week after treatment when she was fatigued, she has been on the road to recovery. She can walk for a much longer distance. She even did snow blowing of her driveway without getting short of breath. She denies chest pain. No cough no sputum. She started radiation this week. She is tolerating the treatment well however she feels the steroids are keeping her up at night and have increased her appetite. She is in excellent spirits. Rest of the review of systems is unremarkable. Previous history: Nicole is a long-time smoker, She tells me that a few months ago she noted that her acid reflux was acting up. She also noted her voice to be changing in became more hoarse. She then developed a sore throat. She had progressively increasing shortness of breath. She had to sit down after she mowed the lawn if she walked from car to the office she would get short of breath. Her chest was feeling heavy. She saw her primary who gave her nebulizer and other meds. When they did not work she had a chest x-ray did taken. This was followed by a CT scan of the chest which was done on June 24 and revealed: Large bulky lymphadenopathy in the left subcarinal and left hilar and perihilar regions. Moderate size lymph nodes also visualized and aortic window precarinal and pretracheal space. Bulky lymphadenopathy surrounds the left bronchus mildly narrowing it. The bulky adenopathy also surrounding the left pulmonary artery and severely narrowing the left lower lobe pulmonary branch. There is a likely left lower lobe subpleural-based pulmonary nodule. Recommend referral to thoracic surgeon and oncologist. Recommend CT PET exam for further evaluation. A left perihilar lung mass as well as significant mediastinal lymphadenopathy suspicious for at least a stage III lung cancer. We also discussed in detail the diagnosis, staging, and treatment of lung cancer which she seemed understand. A PET scan, from , revealed: 1. Intensely FDG avid bulky mediastinal, left hilar and left peribronchial lymphadenopathy is present as described above, most likely malignant in etiology. 2. A 1.3 nodular opacity abutting the posterolateral pleura of the left lower lobe is weakly FDG avid and is nonspecific. This may represent a small focus of rounded atelectasis, but the finding is nonspecific. 3. No additional abnormalities suspicious for other metastatic or malignant lesions are noted. 4. Vascular calcifications including coronary. She then underwent a brain MRI, to rule out metastatic disease. This showed no evidence of metastatic disease to the brain. She had a bronchoscopy and endobronchial ultrasound for diagnostic and staging purposes. . On bronchoscopy: There was a near totally obstructing lesion in the left mainstem bronchus right at the secondary apoorva. This was biopsied and small cell lung cancer. Endobronchial ultrasound done showed extensive mediastinal lymphadenopathy and stations L4, R4, and level 7 were all biopsied and positive for small cell carcinoma. She tolerated the procedure well and has been doing well since. She tells me that lately she has felt more tired than usual. Denies any fever nor chills. Her appetite has declined. She has lost about 8 lb over the past 6 months. She does feel dizzy at times She has midsternal chest pressure. She has shortness of breath on exertion. She does have a dry cough. Denies hemoptysis. She has had symptoms of reflux. She has been burping a lot. Bowels are mainly regular however she does get episodes of diarrhea off and on. She does get joint pains related to arthritis. SOCIAL HISTORY: She has a , that she lives with. She has no children. She has been smoking a pack a day since the age of 16. She is now trying to quit. She is down to 3 or less cigarettes a day. She drinks socially. Review of Systems - Constitutional Reports no additional constitutional complaints - Eyes Reports no additional eye complaints - ENT Reports no additional ear, nose, mouth, and throat complaints - Cardiovascular Reports no additional cardiovascular complaints - Respiratory Reports no additional respiratory complaints - Gastrointestinal Reports no additional gastrointestinal complaints - Genitourinary Reports no additional female genitourinary complaints - Musculoskeletal Reports no additional musculoskeletal complaints - Integumentary/Breasts Skin/Breast: Reports no additional skin complaints - Neurologic Reports no additional neurologic complaints - Psychiatric Reports no additional psychiatric complaints - Endocrine Reports no additional endocrine complaints - Hematologic/Lymphatic Reports no additional hematologic/lymphatic complaints - Allergic/Immunologic Reports no additional allergic/immunologic complaints [facility] Medical History: Medical History (Last Reviewed 07/18/20 @ 14:33 by Jae Kaur MD) Congestion of upper respiratory tract COPD (chronic obstructive pulmonary disease) Dyspnea on exertion GERD (gastroesophageal reflux disease) Hiatal hernia Hilar adenopathy Hoarseness Hyperlipidemia IBS (irritable bowel syndrome) Mammogram declined Tobacco smoker, 1 pack of cigarettes or less per day Vitamin D deficiency Functional capacity: independent ambulation Patient : No Family History: Family History (Last Updated 07/24/20 @ 09:06 by Shasta Khan) Father Cancer of prostate Mother Alzheimer's disease DVT (deep venous thrombosis) Maternal Grandmother Diabetes mellitus Maternal Aunt Ovarian cancer Surgical History: Surgical History (Last Updated 07/24/20 @ 09:04 by Shasta Khan) H/O colonoscopy History of dental surgery History of esophagogastroduodenoscopy (EGD) Hx of tonsillectomy No pertinent past surgical history Social History: Social History (Last Updated 07/24/20 @ 09:07 by Shasta Khan) Living Situation History: Are you a primary intensive care medicine specialist to a significant other at home: No Alcohol History: Alcohol intake: former Alcohol History Details: Alcohol intake frequency: does not drink Tobacco History: Smoking Status: Current every day smoker Tobacco Type: Cigarette Substance Use History: Use of substances other than those prescribed or required for medical reasons : No Domestic Abuse History: Have you been hit, kicked, punched, or otherwise hurt by someone within the past year? If so, by whom?: No Do you feel safe in your current relationship?: Yes Healthcare Practices: Spiritual Healthcare Practices: no Zoroastrian Healthcare Practices: Jehovah'S Witness/ Moravian Cultural Healthcare Practices: no Nutrition Assessment: Recently lost weight without trying: Yes How much weight loss: 2-13 pounds Nutrition Risks: No Nutritional Risk Patient : No : No Poor oral hygiene: No Smoking status: Current every day smoker Home Medications and Allergies Current Medications: Current Medications Generic Name Dose Route Start Last Admin Trade Name Freq PRN Reason Stop Dose Admin Heparin Sodium (Porcine) 500 unit 08/21/20 00:00 Heparin Sodium,Porcine Flush 500 Unit/5 Ml Syringe IVFLUSH 08/21/20 23:59 ONCE EVANGELINA Ondansetron HCl 16 mg in 50 mls @ 200 mls/hr 08/21/20 11:00 08/21/20 13:33 Zofran IV Infused ONCE EVANGELINA Infusion Etoposide 172 mg/ Sodium 508.6 mls @ 508.6 mls/hr 08/21/20 00:00 08/21/20 13:45 Chloride IV 08/21/20 23:59 508.6 mls/hr ONCE EVANGELINA Administration Home Medications Medication Instructions Recorded Confirmed Type atorvastatin 80 mg tablet 80 mg PO DAILY 04/30/20 07/24/20 History Allergies Allergy/AdvReac Type Severity Reaction Status Date / Time codeine Allergy Unknown Itching Verified 07/24/20 09:08 erythromycin base Allergy Unknown Itching Verified 07/24/20 09:08 doxycycline Allergy Itching Verified 07/24/20 09:09 Exam Vital signs: Vital Signs Temp 98.9 F 08/21/20 13:08 Pulse 76 08/21/20 13:08 Resp 18 08/21/20 13:08 BP 117/55 L 08/21/20 13:08 Pulse Ox 96 08/21/20 13:08 Intake & Output 08/20/20 08/21/20 08/21/20 18:59 06:59 18:59 Intake Total 1168.6 / 1168.6 50 / 50 Balance 1168.6 / 1168.6 50 / 50 Intake: Intake, IV Amount 1168.6 / 1168.6 50 / 50 Atezolizumab 1,200 mg In 0.9 % 270 / 270 Sodium Chloride 250 ml @ 540 mls/hr IV ONCE EVANGELINA Rx#: [id number] CARBOplatin 400 mg In 0.9 % 290 / 290 Sodium Chloride 250 ml @ 580 mls/hr IV ONCE EVANGELINA Rx#: [id number] Etoposide 172 mg In 0.9 % 508.6 / 508.6 Sodium Chloride PVC Free 500 ml @ 508.6 mls/hr IV ONCE EVANGELINA Rx# :[id number] dexAMETHasone sod phosphate/NS 50 / 50 12 mg In 50 ml @ 200 mls/hr IV ONCE EVANGELINA Rx#:[id number] ondansetron HCL/NS 16 mg In 50 50 / 50 50 / 50 ml @ 200 mls/hr IV ONCE EVANGELINA Rx# :[id number] Other: Weight 64.2 kg 65.5 kg Weight in Grams [phone] Weight 65.5 kg Body Mass Index 25.5 - Constitutional Present: moderate distress - Routine HEENT Exam Head: Present: normal inspection Eye: Present: normal appearance ENT: Present: mucous membranes moist - Routine Neck Exam Present: full ROM - Routine Respiratory Exam Present: CTAB - Routine Cardiovascular Exam Cardiovascular: Present: RRR, S1, S2 - Routine Abdominal Exam Present: soft, nontender - Routine Rectal Exam Patient deferred: digital exam - Routine Extremities Exam Present: nontender - Routine Back/Spine/Pelvis Exam Back/Spine: Present: full ROM - Routine Skin Exam Present: intact - Routine Neurological Exam Present: alert, oriented X3 - Detailed Neurological Exam: Coma Scale Eye Opening: Spontaneous (4) - Routine Psychiatric Exam Present: normal affect Data - Labs CBC & Chem 7: 08/19/20 11:11 08/19/20 11:11 Labs: 07/24/20 10:04 Complete Blood Count Auto Diff Routine Comprehensive Met. Panel Routine LDH [Lactate Dehydrogenase] Routine 07/29/20 15:59 Complete Blood Count Auto Diff Routine Comprehensive Met. Panel Routine 07/30/20 00:00 Atezolizumab [Tecentriq] 1,200 mg 0.9 % Sodium Chloride [Ns] 250 ml IV ONCE CARBOplatin [Paraplatin] 400 mg 0.9 % Sodium Chloride 250 ml IV ONCE Etoposide [Toposar] 172 mg 0.9 % Sodium Chloride PVC Free [NS PVC Free] 500 ml IV ONCE Heparin Sodium,Porcine Flush 500 unit IVFLUSH ONCE dexAMETHasone sod phosphate/NS [Decadron] 12 mg in 50 ml IV ONCE ondansetron HCL/NS [Zofran] 16 mg in 50 ml IV ONCE 07/31/20 00:00 Etoposide [Toposar] 172 mg 0.9 % Sodium Chloride PVC Free [NS PVC Free] 500 ml IV ONCE Heparin Sodium,Porcine Flush 500 unit IVFLUSH ONCE 07/31/20 11:00 ondansetron HCL/NS [Zofran] 16 mg in 50 ml IV ONCE 08/01/20 00:00 Etoposide [Toposar] 172 mg 0.9 % Sodium Chloride PVC Free [NS PVC Free] 500 ml IV ONCE Heparin Sodium,Porcine Flush 500 unit IVFLUSH ONCE 08/01/20 10:00 ondansetron HCL/NS [Zofran] 16 mg in 50 ml IV ONCE 08/06/20 09:48 CMP [Comprehensive Met. Panel] Routine Complete Blood Count Auto Diff Routine 08/13/20 12:30 CMP [Comprehensive Met. Panel] Routine Complete Blood Count Auto Diff Routine SLIDE REVIEW Routine 08/19/20 11:11 Complete Blood Count Auto Diff Routine Comprehensive Met. Panel Routine LDH [Lactate Dehydrogenase] Routine SLIDE REVIEW Routine 08/20/20 00:00 Atezolizumab [Tecentriq] 1,200 mg 0.9 % Sodium Chloride [Ns] 250 ml IV ONCE CARBOplatin [Paraplatin] 400 mg 0.9 % Sodium Chloride 250 ml IV ONCE Etoposide [Toposar] 172 mg 0.9 % Sodium Chloride PVC Free [NS PVC Free] 500 ml IV ONCE Heparin Sodium,Porcine Flush 500 unit IVFLUSH ONCE dexAMETHasone sod phosphate/NS [Decadron] 12 mg in 50 ml IV ONCE ondansetron HCL/NS [Zofran] 16 mg in 50 ml IV ONCE Laboratory Last Values WBC 3.5 X10*3/uL (4.8-10.8) L 08/19/20 11:11 RBC 4.10 X10*6/uL (4.20-5.50) L 08/19/20 11:11 Hgb 11.4 g/dl (12.0-16.0) L 08/19/20 11:11 Hct 34.4 % (37-47) L 08/19/20 11:11 MCV 83.9 fL (80-98) 08/19/20 11:11 MCH 27.8 pg (27.0-33.0) 08/19/20 11:11 MCHC 33.1 g/dl (31.0-35.0) 08/19/20 11:11 RDW 16.3 % (11.0-16.0) H 08/19/20 11:11 Plt Count 142 X10*3/uL (160-400) L D 08/19/20 11:11 MPV 10.2 fL (9.4-12.3) 08/19/20 11:11 Immature Gran % (Auto) 1.4 % (0.0-0.4) H 08/19/20 11:11 Neut % (Auto) 59.4 % (45-73) 08/19/20 11:11 Lymph % (Auto) 19.3 % (20-40) L 08/19/20 11:11 [place] % (Auto) 18.7 % (2-11) H 08/19/20 11:11 Eos % (Auto) 0.9 % (0-4) 08/19/20 11:11 Baso % (Auto) 0.3 % (0-2) 08/19/20 11:11 Lymph # (Auto) 0.7 X10*3/uL (1.2-4.9) L 08/19/20 11:11 [place] # (Auto) 0.7 X10*3/uL (0.1-1.2) 08/19/20 11:11 Eos # (Auto) 0.0 X10*3/uL (0.0-0.4) 08/19/20 11:11 Baso # (Auto) 0.0 X10*3/uL (0.0-0.2) 08/19/20 11:11 Abs Immat Gran (auto) 0.05 X10*3/uL (0.00-0.03) H 08/19/20 11:11 Absolute Neuts (auto) 2.1 X10*3/uL (2.0-8.3) 08/19/20 11:11 Absolute Nucleated RBC 0.000 X10*3/uL (0.0-0.012) 08/19/20 11:11 Nucleated RBC % (auto) 0.0 /100WBC (0.0-0.2) 08/19/20 11:11 Smear Tech's Comments VERIFIED 08/19/20 11:11 Smear Path Review SEE NOTE 08/13/20 12:30 Sodium 140 mmol/L (135-145) 08/19/20 11:11 Potassium 4.2 mmol/L (3.3-5.1) 08/19/20 11:11 Chloride 105 mmol/L (96-108) 08/19/20 11:11 Carbon Dioxide 29 mmol/L (22-29) 08/19/20 11:11 Anion Gap 10 (12-20) L 08/19/20 11:11 BUN 9 mg/dL (9-16) 08/19/20 11:11 Creatinine 0.81 mg/dL (0.5-1.4) 08/19/20 11:11 Estim Creat Clear Calc 57.2 08/19/20 11:11 Estimated GFR > 60 08/19/20 11:11 Random Glucose 92 mg/dL (60-115) 08/19/20 11:11 Calcium 8.6 mg/dL (8.4-10.2) 08/19/20 11:11 Total Bilirubin 0.7 mg/dL (0.0-1.0) 08/19/20 11:11 AST 46 U/L (5-31) H D 08/19/20 11:11 ALT 49 U/L (0-31) H 08/19/20 11:11 Alkaline Phosphatase 78 U/L (39-117) D 08/19/20 11:11 Lactate Dehydrogenase 232 U/L (122-220) H 08/19/20 11:11 Total Protein 7.0 g/dL (6.5-8.0) 08/19/20 11:11 Albumin 4.2 g/dL (3.5-5.0) 08/19/20 11:11 Progress Note: A/P (1) Extensive stage primary small cell carcinoma of lung Status: Acute Assessment and plan: This is a pleasant 70-year-old lady with history of smoking and COPD. She presented with progressive cough, chest pressure, hoarseness and shortness of breath over the past 6 months. She has been diagnosed with extensive stage small cell carcinoma of the lung. CT scan of the chest which was done on June 24 and revealed: Large bulky lymphadenopathy in the left subcarinal and left hilar and perihilar regions. Moderate size lymph nodes also visualized and aortic window precarinal and pretracheal space. Bulky lymphadenopathy surrounds the left bronchus mildly narrowing it. The bulky adenopathy also surrounding the left pulmonary artery and severely tessa rowing the left lower lobe pulmonary branch. There is a likely left lower lobe subpleural-based pulmonary nodule. Recommend referral to thoracic surgeon and oncologist. Recommend CT PET exam for further evaluation. A PET scan, from , revealed: 1. Intensely FDG avid bulky mediastinal, left hilar and left peribronchial lymphadenopathy is present as described above, most likely malignant in etiology. 2. A 1.3 nodular opacity abutting the posterolateral pleura of the left lower lobe is weakly FDG avid and is nonspecific. This may represent a small focus of rounded atelectasis, but the finding is nonspecific. 3. No additional abnormalities suspicious for other metastatic or malignant lesions are noted. 4. Vascular calcifications including coronary. MRI of the brain: showed no evidence of metastatic disease to the brain. She appeared to have significant bronchial obstruction. I went over the course and prognosis of small-cell carcinoma with her and her significant other. Mentioned that without treatment, her median survival would be 8 weeks. With treatment it could be 18-24 months, depending upon her response and tolerability. I have recommended combined modality therapy with radiation along with systemic chemotherapy with carbo etoposide and Atezolizumab. She had a tele visit with Dr. Carter, from [facility]. She started radiation, this week. Details of the regimen including potential side effects of nausea vomiting diarrhea, renal toxicity, pancytopenia, need for antibiotic blood transfusions as well as growth factors was all addressed with her. She understood and was willing to proceed. First cycle was started on TuesdayJuly 30. She started cycle 2 yesterday. She has already started feeling better. This is encouraging. PLAN: She will return tomorrow for day 3. She will return in 3 weeks for her 3rd cycle. Will then re-stage her with imaging. All her and her partner's questions were answered to their satisfaction. Thanks, CC: Dr. Chung. Additional CC's: Radha Kaur - Time Spent With Patient Total time spent is greater than 50% in coordination of care (as documented) at patient's floor/unit and/or counseling patient: 25 - 35 minutes
--- NOTE | 2020-08-21 15:26 | MHC.HEMONC ---
Etoposide Day 2 well tolerated. VSS, no complaints at this time. Exam with Dr. Owen. Patient started radiation on 08/20/20. Patient to return for Day 3 tomorrow. IV angio left in place and wrapped for protection
[2020-08-22 10:01] VITALS: BP 107/68; PULSE 83; RESP 18; TEMP 36.7; O2SAT 96; BMI 25.7
[2020-08-22] MEDS: ondansetron HCL/NS 16 MG/50 ML PIGGYBACK 200 MG IV (10:51)
--- NOTE | 2020-08-22 13:17 | MHC.HEMONC ---
Pt doing fairly well with chemo this week. VSS. She is fatigued. No n/v. Her appetite is fair at best but she states this is normal for her. Tom chemo via PIV today and IV removed. Return next week for labs. Concurrent RT.
[2020-09-02 15:25] VITALS: BMI 25.7
--- NOTE | 2020-09-03 14:42 | MHC.HEMONCMA ---
Dr Gee requested to have notes faxed to Dr Hines. Done.
--- NOTE | 2020-10-28 11:50 | MHC.HEMONCSW ---
TRANSFERRED CARE TO [facility] IN SEPTEMBER.
== END | disposition home or self-care (01) ==
LOC: HO.ONC 07-24 08:45
PROVIDERS: PCP Internal Medicine; Referring Provider Surgery; Visit Provider Internal Medicine Medical Oncology
DX: Z51.11 Encounter for antineoplastic chemotherapy (principal); C34.02 Malignant neoplasm of left main bronchus; J44.9 Chronic obstructive pulmonary disease, unspecified; F17.210 Nicotine dependence, cigarettes, uncomplicated
CPT/HCPCS: 36415; 80053; 83615; 85025; 85060; 96375; 96411; 96413; 96415; 96417; 99204; 99211; 99214; J1100; J2250; J2370; J2405; J3010; J9022; J9045; J9181